=== PATIENT | female | born 1950 | race Caucasian/White ===

== ENCOUNTER 2018-08-28 10:21 | Inpatient (IN) | payer MEDICARE ==
[2018-08-28] MEDS ORDERED: MORPHINE SULFATE 10 MG/ML INJ IV ONE ×2 (10:38→14:18)
[2018-08-28] MEDS ORDERED: NORMAL SALINE 1000 ML 1,000 ML IV ONE (10:38)
--- NOTE | 2018-08-28 10:46 | ER Document Report ---
ED General - General Chief Complaint: Flank Pain Stated Complaint: RIGHT SIDE PAIN Time Seen by Provider: 08/28/18 10:28 TRAVEL OUTSIDE OF THE [place] IN LAST 30 DAYS: No - HPI Notes: Patient is a 67-year-old female that presents to the emergency department for chief complaint of right flank pain. Patient reports intermittent pain in her right flank since April 2018. She states the pain has become more frequent and sharp recently. She states pain seemed to increase after a fall that she had 1 week ago. She states she walked into a door and lost her balance falling sideways. She did hit her head but denies any loss of consciousness. She had to have a friend come help her off of the floor and has had a hard time standing since the fall. She denies any numbness but states both of her legs feel very weak and she is having a harder time getting around. She denies headache and vision changes. Patient states she does not eat much because eating makes her right flank pain worse. She denies relieving factors to her pain. She does endorse daily alcohol stating she drinks 1 beer a day. She denies ever having withdrawal symptoms but she states she is not sure because she has never stopped drinking. Patient also states that recently she has had decreased urination and dark urination Past Medical History: Alcoholism Past Surgical History: Denies Social History: Daily alcohol. denies drugs and tobacco Family History: Reviewed and noncontributory for presenting illness Allergies: Reviewed, see documented allergy list. REVIEW OF SYSTEMS: CONSTITUTIONAL : No fever No chills No diaphoresis No recent illness EENT: No vision changes No congestion No sore throat CARDIOVASCULAR: No chest pain No palpitations RESPIRATORY: No shortness of breath No cough No difficulty breathing GASTROINTESTINAL: No abdominal pain Right flank pain No nausea No vomiting No diarrhea GENITOURINARY: No dysuria No hematuria difficulty urinating MUSCULOSKELETAL: No back pain No leg pain No arm pain SKIN: No rashes No lesions LYMPHATIC: No swollen, enlarged glands. NEUROLOGICAL: No lightheadedness No headache weakness No paresthesias PSYCHIATRIC: No anxiety No depression PHYSICAL EXAMINATION: Vital signs reviewed, nursing noted reviewed. GENERAL: Cachectic, no acute distress HEAD: Atraumatic, normocephalic. EYES: Eyes appear normal, extraocular movements intact, sclera anicteric, conjunctiva are normal. ENT: nares patent, oropharynx clear without exudates. Dry mucous membranes. NECK: Normal range of motion, supple without lymphadenopathy. Nontender. LUNGS: Breath sounds clear to auscultation bilaterally and equal. No wheezes rales or rhonchi. HEART: Regular rate and rhythm without murmurs, +2/4 DP pulse left, +1/4 DP pulse right. ABDOMEN: Soft, right upper quadrant tenderness, normoactive bowel sounds. No rebound, guarding, or rigidity. No masses appreciated. EXTREMITIES: Right hip tenderness with palpation and range of motion. Pain with right hip axial loading. +2 pitting edema symmetric bilaterally. NEUROLOGICAL: Unable to lift bilateral lower extremities against gravity. +4/5 dorsiflexion plantarflexion strength symmetric bilaterally. Normal sensation. PSYCH: Normal mood, normal affect. SKIN: Warm, Dry, normal turgor, no rashes or lesions noted on exposed skin - Related Data Allergies/Adverse Reactions: Sulfa (Sulfonamide Antibiotics) Allergy (Severe, Verified 08/28/18 10:24) Past Medical History - Social History Smoking Status: Never Smoker Family History: Reviewed & Not Pertinent Pulmonary Medical History: Reports: Hx COPD Psychiatric Medical History: Reports: Hx Depression Past Surgical History: Reports: Hx Appendectomy, Hx Cholecystectomy, Hx Hysterectomy, Hx Tonsillectomy - Immunizations Hx Diphtheria, Pertussis, Tetanus Vaccination: Yes Review of Systems - Review of Systems Notes: Dictated Physical Exam - Vital signs Vitals: Temp Resp Pulse Ox 98.0 F 19 100 08/28/18 10:42 08/28/18 10:42 08/28/18 10:42 - Notes Notes: Dictated Course - Re-evaluation Re-evalutation: 08/28/18 10:52 Vitals reviewed. Nursing notes reviewed. Patient is afebrile and nontoxic. She is not having any Sirs criteria at presentation. Patient appears cachectic malnourished and dehydrated. She was given IV hydration and pain medication for symptom medic treatment in the ER. 08/28/18 12:21 Lab work shows hypokalemia at 3.5, patient was given oral potassium replacement. She also also hyponatremic. Chest x-ray is consistent with pneumonia which will be treated with Levaquin. She has no leukocytosis or Sirs and is not septic. X-ray of the hip shows no fracture. Laboratory 08/28/18 08/28/18 08/28/18 10:45 10:45 10:45 WBC 4.0 RBC 3.14 L Hgb 11.1 L Hct 31.9 L MCV 102 H MCH 35.4 H MCHC 34.9 RDW 14.4 H Plt Count 209 Seg Neutrophils % 68.0 Lymphocytes % 19.4 Monocytes % 11.7 Eosinophils % 0.5 Basophils % 0.4 Absolute Neutrophils 2.8 Absolute Lymphocytes 0.8 Absolute Monocytes 0.5 Absolute Eosinophils 0.0 Absolute Basophils 0.0 Sodium 130.1 L Potassium 3.5 L Chloride 100 Carbon Dioxide 20 L Anion Gap 10 BUN 8 Creatinine 0.37 L Est GFR ( Amer) > 60 Est GFR (Non-Af Amer) > 60 Glucose 68 L Calcium 8.7 Total Bilirubin 0.4 Direct Bilirubin 0.4 Neonat Total Bilirubin Not Reportable Neonat Direct Bilirubin Not Reportable Neonat Indirect Bili Not Reportable AST 97 H ALT 41 Alkaline Phosphatase 188 H Troponin I < 0.012 Total Protein 5.4 L Albumin 2.9 L Serum Alcohol < 10 Chest X-Ray 08/28/18 10:37 IMPRESSION: Right upper and lower lobe airspace disease and associated subpulmonic effusion consistent with pneumonia. Hip/Pelvis X-Ray 08/28/18 10:37 IMPRESSION: NO RADIOGRAPHIC EVIDENCE OF ACUTE INJURY. Head CT 08/28/18 10:38 IMPRESSION: NORMAL BRAIN CT WITHOUT CONTRAST. EVIDENCE OF ACUTE STROKE: NO. 08/28/18 14:25 Chest X-Ray 08/28/18 10:37 IMPRESSION: Right upper and lower lobe airspace disease and associated subpulmonic effusion consistent with pneumonia. Hip/Pelvis X-Ray 08/28/18 10:37 IMPRESSION: NO RADIOGRAPHIC EVIDENCE OF ACUTE INJURY. Head CT 08/28/18 10:38 IMPRESSION: NORMAL BRAIN CT WITHOUT CONTRAST. EVIDENCE OF ACUTE STROKE: NO. Abdomen/Pelvis CT 08/28/18 12:11 IMPRESSION: Large right pleural effusion Too numerous to count liver masses worrisome for metastatic lesions Patient CT abdomen shows a large amount of liver masses concerning for metastatic disease. I discussed her findings today with patient and her daughter. Patient will be admitted to the hospital for further pain management. She was given a second dose of morphine in the emergency room. She is requiring antibiotics for pneumonia and further evaluation of her pleural effusion as well as liver masses. CT was obtained after patient had voided, she has a history of neurogenic bladder, she appears to have some urinary retention. Chery catheter was placed for comfort to relieve retention. Case discussed with admitting physician Dr. Harvey who accepted admission. Patient and daughter are in agreement with the plan. She was stable at time of admission. - Vital Signs Vital signs: Temp Pulse Resp BP Pulse Ox 98.0 F 14 95/56 L 100 08/28/18 10:42 08/28/18 14:01 08/28/18 14:00 08/28/18 14:01 - Laboratory Result Diagrams: 08/28/18 10:45 08/28/18 10:45 Laboratory results interpreted by me: 08/28/18 08/28/18 08/28/18 10:45 10:45 13:28 RBC 3.14 L Hgb 11.1 L Hct 31.9 L MCV 102 H MCH 35.4 H RDW 14.4 H Sodium 130.1 L Potassium 3.5 L Carbon Dioxide 20 L Creatinine 0.37 L Glucose 68 L AST 97 H Alkaline Phosphatase 188 H Total Protein 5.4 L Albumin 2.9 L Urine Ketones 20 H Urine Blood SMALL H Ur Leukocyte Esterase SMALL H - EKG Interpretation by Me Additional EKG results interpreted by me: 08/28/18 12:12 1039: Normal sinus rhythm, rate 83, normal axis, no ectopy, nonspecific T wave abnormality diffusely Discharge - Discharge Clinical Impression: Pleural effusion, Liver masses, Urinary retention, Right flank pain Pneumonia Qualifiers: Pneumonia type: due to unspecified organism Laterality: right Lung location: lower lobe of lung Qualified Code(s): J18.1 - Lobar pneumonia, unspecified organism Failure to thrive Qualifiers: Failure to thrive age range: in adult Qualified Code(s): R62.7 - Adult failure to thrive Closed head injury Qualifiers: Encounter type: sequela Qualified Code(s): S09.90XS - Unspecified injury of head, sequela Condition: Stable Disposition: ADMITTED INPATIENT Admitting Provider: Hospitalist Unit Admitted: Telemetry Referrals: JUSTIN FORBES MD [NO LOCAL MD] - Follow up as needed
--- NOTE | 2018-08-28 11:03 | EKG REPORT ---
SEVERITY:- BORDERLINE ECG - SINUS RHYTHM BORDERLINE ST-T ABNORMALITIES, DIFFUSE LEADS : Confirmed by: Cayla Andrews 28-Aug-2018 11:03:13
[2018-08-28 11:12] LABS: ABSOLUTE LYMPHOCYTES (AUTO) 0.8 10^3/uL (0.5-4.7); ABSOLUTE MONOCYTES (AUTO) 0.5 10^3/uL (0.1-1.4); ABSOLUTE NEUT (AUTO) 2.8 10^3/uL (1.7-8.2); BASOPHILS % (AUTO) 0.4 % (0-2); EOSINOPHILS % (AUTO) 0.5 % (0-6); HEMATOCRIT 31.9 % (36.0-47.0); HEMOGLOBIN 11.1 g/dL (12.0-15.5); LYMPHOCYTES % (AUTO) 19.4 % (13-45); MEAN CORPUSCULAR HEMOGLOBIN 35.4 pg (27.0-33.4); MEAN CORPUSCULAR HGB CONC 34.9 g/dL (32.0-36.0); MEAN CORPUSCULAR VOLUME 102 fl (80-97); MONOCYTES % (AUTO) 11.7 % (3-13); PLATELET COUNT 209 10^3/uL (150-450); RED BLOOD COUNT 3.14 10^6/uL (3.72-5.28); RED CELL DISTRIBUTION WIDTH 14.4 % (11.5-14.0); TOTAL CELLS COUNTED % (AUTO) 100 %
[2018-08-28 11:29] LABS: ALANINE AMINOTRANSFERASE 41 U/L (9-52); ALBUMIN 2.9 g/dL (3.5-5.0); ALCOHOL < 10 mg/dL (NONE DETECTED); ALKALINE PHOSPHATASE 188 U/L (38-126); ANION GAP 10 (5-19); ASPARTATE AMINO TRANSFERASE 97 U/L (14-36); BILIRUBIN,DIRECT 0.4 mg/dL (0.0-0.4); BILIRUBIN,TOTAL 0.4 mg/dL (0.2-1.3); BLOOD UREA NITROGEN 8 mg/dL (7-20); CALCIUM 8.7 mg/dL (8.4-10.2); CARBON DIOXIDE 20 mmol/L (22-30); CHLORIDE 100 mmol/L (98-107); GLUCOSE 68 mg/dL (75-110); POTASSIUM 3.5 mmol/L (3.6-5.0); SODIUM 130.1 mmol/L (137-145); TOTAL PROTEIN 5.4 g/dL (6.3-8.2)
--- NOTE | 2018-08-28 11:37 | RADIOLOGY REPORT (SQ) ---
EXAM DESCRIPTION: CT HEAD WITHOUT COMPLETED DATE/TIME: 08/28/2018 11:25 am REASON FOR STUDY: trauma COMPARISON: None. TECHNIQUE: Axial images acquired through the brain without intravenous contrast. Images reviewed wi th bone, brain and subdural windows. Additional sagittal and coronal reconstructions were generated. Images stored on PACS. All CT scanners at this facility use dose modulation, iterative reconstruction, and/or weight based d osing when appropriate to reduce radiation dose to as low as reasonably achievable (ALARA). [facility]: Dose Right [facility]: CareDose [facility]: Dose Right [facility]: Teradose 4D [facility]: Biodirection RADIATION DOSE: CT Rad equipment meets quality standard of care and radiation dose reduction techniq ues were employed. CTDIvol: 53.2 mGy. DLP: 991 mGy-cm. mGy. LIMITATIONS: None. FINDINGS: VENTRICLES: Normal size and contour. CEREBRUM: No masses. No hemorrhage. No midline shift. No evidence for acute infarction. Normal gra y/white matter differentiation. No areas of low density in the white matter. CEREBELLUM: No masses. No hemorrhage. No alteration of density. No evidence for acute infarction. EXTRAAXIAL SPACES: No fluid collections. No masses. ORBITS AND GLOBE: No intra- or extraconal masses. Normal contour of globe without masses. CALVARIUM: No fracture. PARANASAL SINUSES: No fluid or mucosal thickening. SOFT TISSUES: No mass or hematoma. OTHER: No other significant finding. IMPRESSION: NORMAL BRAIN CT WITHOUT CONTRAST. EVIDENCE OF ACUTE STROKE: NO. COMMENT: Quality ID # [id number]: Final reports with documentation of one or more dose reduction techniques (e.g., Automated exposure control, adjustment of the mA and/or kV according to patient size, use of iterative reconstruction technique) TECHNICAL DOCUMENTATION: JOB ID: [id number] [employer]- All Rights Reserved Reading location - IP/workstation name: [email or web address] [facility] [employer] [email or web address]
--- NOTE | 2018-08-28 11:39 | RADIOLOGY REPORT (SQ) ---
EXAM DESCRIPTION: CHEST SINGLE VIEW COMPLETED DATE/TIME: 08/28/2018 11:28 am REASON FOR STUDY: weakness COMPARISON: 02/28/2011 EXAM PARAMETERS: NUMBER OF VIEWS: One view. TECHNIQUE: Single frontal radiographic view of the chest acquired. RADIATION DOSE: NA LIMITATIONS: None. FINDINGS: LUNGS AND PLEURA: COPD. Airspace disease in the right upper lobe. Blunting of the right costophrenic angle. Left lung is clear. MEDIASTINUM AND HILAR STRUCTURES: No masses. Contour normal. HEART AND VASCULAR STRUCTURES: Heart normal in size. Normal vasculature. BONES: No acute findings. HARDWARE: None in the chest. OTHER: No other significant finding. IMPRESSION: Right upper and lower lobe airspace disease and associated subpulmonic effusion consiste nt with pneumonia. TECHNICAL DOCUMENTATION: JOB ID: [id number] [employer]- All Rights Reserved Reading location - IP/workstation name: [email or web address]
--- NOTE | 2018-08-28 11:42 | RADIOLOGY REPORT (SQ) ---
EXAM DESCRIPTION: HIP RIGHT AP/LATERAL COMPLETED DATE/TIME: 08/28/2018 11:28 am REASON FOR STUDY: hip pain COMPARISON: None. NUMBER OF VIEWS: Two views. TECHNIQUE: AP pelvis and additional frog-leg view of the right hip. LIMITATIONS: None. FINDINGS: Moderate osteoarthritic changes in both hips. No evidence of acute fracture or dislocatio n. IMPRESSION: NO RADIOGRAPHIC EVIDENCE OF ACUTE INJURY. TECHNICAL DOCUMENTATION: JOB ID: [id number] [employer]- All Rights Reserved Reading location - IP/workstation name: [email or web address]
[2018-08-28] MEDS ORDERED: POTASSIUM CHLORIDE 20 MEQ/15 ML UDCUP PO ONE (12:20)
[2018-08-28] MEDS ORDERED: LEVOFLOXACIN 750 MG/D5W RTU 750 MG/150 ML RTUPB IV SCH (13:00)
--- NOTE | 2018-08-28 14:00 | RADIOLOGY REPORT (SQ) ---
EXAM DESCRIPTION: CT ABD/PELVIS WITH IV ONLY COMPLETED DATE/TIME: 08/28/2018 1:45 pm REASON FOR STUDY: right abdominal pain COMPARISON: CT angio chest 02/28/2011 TECHNIQUE: CT scan of the abdomen and pelvis performed using helical scanning technique with dynamic intravenous contrast injection. No oral contrast. Images reviewed with lung, soft tissue, and bone windows. Reconstructed coronal and sagittal MPR images reviewed. Delayed images for evaluation of the urinary system also acquired. All images stored on PACS. All CT scanners at this facility use dose modulation, iterative reconstruction, and/or weight based d osing when appropriate to reduce radiation dose to as low as reasonably achievable (ALARA). [facility]: Dose Right [facility]: CareDose [facility]: Dose Right [facility]: Teradose 4D [facility]: ZeusControls CONTRAST TYPE AND DOSE: contrast/concentration: Isovue 350.00 mg/ml; Total Contrast Delivered: 44.0 ml; Total Saline Delivered: 51.0 ml RENAL FUNCTION: Creatinine 0.4 RADIATION DOSE: CT Rad equipment meets quality standard of care and radiation dose reduction techniq ues were employed. CTDIvol: 4.8 - 4.9 mGy. DLP: 510 mGy-cm.. LIMITATIONS: None. FINDINGS: LOWER CHEST: Large right pleural effusion LIVER: Too numerous to count liver masses worrisome for metastatic disease, the largest is 3 cm in si ze left lobe liver SPLEEN: Normal size. No focal lesions. PANCREAS: No masses. No significant calcifications. No adjacent inflammation or peripancreatic fluid collections. Pancreatic duct not dilated. GALLBLADDER: Surgically absent ADRENAL GLANDS: No significant masses or asymmetry. RIGHT KIDNEY AND URETER: No solid masses. No significant calcifications. No hydronephrosis or hyd roureter. LEFT KIDNEY AND URETER: No solid masses. No significant calcifications. No hydronephrosis or hydr oureter. AORTA AND VESSELS: No abdominal aortic aneurysm. Heavy atherosclerotic calcification at the origins of the celiac artery, SMA, left renal artery, and bilateral proximal common iliac arteries RETROPERITONEUM: No retroperitoneal adenopathy, hemorrhage or masses. BOWEL AND PERITONEAL CAVITY: No masses or inflammatory changes. No free fluid or peritoneal masses. APPENDIX: Not identified PELVIS: Small amount of free pelvic cul-de-sac fluid. Bladder unremarkable. Uterus and ovaries not identified. ABDOMINAL WALL: No masses. No hernias. BONES: No acute fracture. No gross lytic or blastic lesions. Old avulsion with bony overgrowth, rig ht anterior superior iliac spine OTHER: No other significant finding. IMPRESSION: Large right pleural effusion Too numerous to count liver masses worrisome for metastatic lesions TECHNICAL DOCUMENTATION: JOB ID: [id number] Quality ID # [id number]: Final reports with documentation of one or more dose reduction techniques (e.g., Au tomated exposure control, adjustment of the mA and/or kV according to patient size, use of iterative reconstruction technique) 2010 [employer]- All Rights Reserved Reading location - IP/workstation name: [email or web address]
[2018-08-28 14:08] LABS: APPEARANCE,URINE SLIGHTLY-CLOUDY; BILIRUBIN,URINE NEGATIVE (NEGATIVE); COLOR,URINE YELLOW; GLUCOSE, URINE NEGATIVE (NEGATIVE); KETONES,URINE 20 mg/dL (NEGATIVE); LEUKOCYTE ESTERASE,URINE SMALL (NEGATIVE); NITRITE,URINE NEGATIVE (NEGATIVE); PROTEIN,URINE NEGATIVE (NEGATIVE); URINE SPECIFIC GRAVITY 1.006; UROBILINOGEN,URINE NEGATIVE mg/dL (<2.0)
[2018-08-28 14:37] LABS: INTERNATIONAL RATION (INR) 1.06; PROTHROMBIN TIME 14.3 SEC (11.4-15.4)
[2018-08-28] MEDS ORDERED: IPRATROPIUM/ALBUTEROL 0.5-2.5 MG/3 ML AMPUL NEB PRN (15:33)
[2018-08-28] MEDS ORDERED: ONDANSETRON HCL INJ/PF 4 MG/2 ML SDV IV PRN (15:33)
[2018-08-28] MEDS ORDERED: MAG HYDROX/AL HYDROX/SIMETH SUSP 30 ML UDCUP PO PRN (15:33)
[2018-08-28] MEDS ORDERED: IBUPROFEN 400 MG TABLET PO PRN (15:46)
--- NOTE | 2018-08-28 16:06 | PDOC H&P ---
History of Present Illness Admission Date/PCP: 08/28/18 14:41 Patient complains of: Right-sided abdominal pain and right chest pain History of Present Illness: DOMINICK KABA is a 67 year old female sent to the hospital via ambulance after the daughter called EMS. Patient tried to ambulate to the bathroom and walked into the door. Daughter states her mother is an alcoholic has been in the house for 5 years she has never gone out of the house she does not see doctors. She has had gradual weight loss over the past year. She is having increasing complaint of pain in the right side of her abdomen which is why the daughter called EMS. Upon arrival to the ER patient is a cachectic appearing white female CT of the head showed no acute pathology a CT of the abdomen was done due to the abdominal pain which showed numerous lesions in the liver. Patient had no fever normal white count her sodium was low at 130 likely due to her alcoholism there was a large right pleural effusion on CT as well. Patient has no knowledge of underlying cancer as she has never sought any medical care. Her last healthcare encounter was cholecystectomy in 2012. She denies hematochezia melena she does use BC powder daily. She smokes up to 2 packs a day. Her coagulation studies were surprisingly normal and she has a history of urinary retention with overflow incontinence. Past Medical History Cardiac Medical History: Reports: None Pulmonary Medical History: Reports: Chronic Obstructive Pulmonary Disease (COPD) EENT Medical History: Reports: None Neurological Medical History: Reports: None Endocrine Medical History: Reports: None Renal/ Medical History: Reports: None Malignancy Medical History: Reports: None GI Medical History: Reports: None Musculoskeltal Medical History: Reports: None, Arthritis Skin Medical History: Reports: None Psychiatric Medical History: Reports: Depression, Substance Abuse, Tobacco Dependency Hematology: Reports: None Infectious Medical History: Reports: None Past Surgical History Past Surgical History: Reports: Appendectomy, Cholecystectomy, Hysterectomy, Orthopedic Surgery - neck, Tonsillectomy Social History Information Source: Patient Smoking Status: Never Smoker Cigarettes Packs Per Day: 2 Number of Years Smokin Frequency of Alcohol Use: Heavy Drugs: None - Advance Directive Resuscitation Status: Full Code Family History Family History: Malignancy - Daughter breast cancer, mother lung cancer Parental Family History Reviewed: Yes Children Family History Reviewed: Yes Sibling(s) Family History Reviewed.: Yes Medication/Allergy Home Medications: No Home Medications 08/28/18 Allergies/Adverse Reactions: Sulfa (Sulfonamide Antibiotics) Allergy (Severe, Verified 08/28/18 10:24) Review of Systems Constitutional: PRESENT: weight loss. ABSENT: chills, fever(s), headache(s), weight gain Eyes: ABSENT: visual disturbances Ears: ABSENT: hearing changes Cardiovascular: PRESENT: edema - Bilateral. ABSENT: chest pain, dyspnea on exertion, orthropnea, palpitations Respiratory: PRESENT: dyspnea. ABSENT: cough, hemoptysis Gastrointestinal: PRESENT: abdominal pain - Right upper quadrant. ABSENT: coffee ground emesis, constipation, diarrhea, hematemesis, hematochezia, melena , nausea, vomiting Genitourinary: PRESENT: other - Urinary retention. ABSENT: dysuria, hematuria Neurological: ABSENT: abnormal gait, abnormal speech, confusion, dizziness, focal weakness, syncope Psychiatric: ABSENT: anxiety, depression, homidical ideation, suicidal ideation Endocrine: ABSENT: cold intolerance, heat intolerance, polydipsia, polyuria Hematologic/Lymphatic: ABSENT: easy bleeding, easy bruising Physical Exam Vital Signs: Temp Pulse Resp BP Pulse Ox 98.0 F 14 95/56 L 100 08/28/18 10:42 08/28/18 14:01 08/28/18 14:00 08/28/18 14:01 General appearance: PRESENT: no acute distress, well-developed, well-nourished Eye exam: PRESENT: conjunctiva pink, EOMI, PERRLA. ABSENT: scleral icterus Ear exam: PRESENT: normal external ear exam Mouth exam: PRESENT: moist, tongue midline Neck exam: ABSENT: carotid bruit, JVD, lymphadenopathy, thyromegaly Respiratory exam: PRESENT: clear to auscultation zeke, decreased breath sounds - Right base. ABSENT: rales, rhonchi, wheezes Cardiovascular exam: PRESENT: RRR. ABSENT: diastolic murmur, rubs, systolic murmur Pulses: PRESENT: normal dorsalis pedis pul, +2 pedal pulses bilateral GI/Abdominal exam: PRESENT: normal bowel sounds, organolmegaly - Large liver tender, soft, tenderness. ABSENT: distended, guarding, mass, rebound Extremities exam: PRESENT: full ROM. ABSENT: calf tenderness, clubbing, pedal edema Neurological exam: PRESENT: alert, awake, oriented to person, oriented to place , oriented to time, oriented to situation, CN II-XII grossly intact. ABSENT: motor sensory deficit Psychiatric exam: PRESENT: anxious, depressed Skin exam: PRESENT: dry, intact, warm. ABSENT: cyanosis, rash Results Impressions: Chest X-Ray 08/28/18 10:37 IMPRESSION: Right upper and lower lobe airspace disease and associated subpulmonic effusion consistent with pneumonia. Hip/Pelvis X-Ray 08/28/18 10:37 IMPRESSION: NO RADIOGRAPHIC EVIDENCE OF ACUTE INJURY. Head CT 08/28/18 10:38 IMPRESSION: NORMAL BRAIN CT WITHOUT CONTRAST. EVIDENCE OF ACUTE STROKE: NO. Abdomen/Pelvis CT 08/28/18 12:11 IMPRESSION: Large right pleural effusion Too numerous to count liver masses worrisome for metastatic lesions Assessment & Plan - Diagnosis (1) Right flank pain Is this a current diagnosis for this admission?: Yes Plan: Due to numerous metastatic lesions in the liver (2) Liver masses Is this a current diagnosis for this admission?: Yes Plan: Unknown primary if pleural effusion fails to yield diagnostic cytology will obtain liver biopsy. (3) Pleural effusion Is this a current diagnosis for this admission?: Yes Plan: Discussed case with Dr. Catalan of surgery was recommended interventional radiology. Discussed with Dr. Solis of radiology will perform thoracentesis in the morning will check for cytology culture cell count LDH protein glucose cholesterol (4) Severe protein-calorie malnutrition Plan: Place patient on regular diet consult dietary for nutritional needs. (5) Hyponatremia Is this a current diagnosis for this admission?: Yes Plan: Sodium 130 likely due to her chronic alcoholism normal saline infusion repeat BMP in a.m. 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 Is this a current diagnosis for this admission?: Yes - Time Time Spent: 50 to 70 Minutes - Inpatient Certification Based on my medical assessment, after consideration of the patient's comorbidities, presenting symptoms, or acuity I expect that the services needed warrant INPATIENT care.: Yes I certify that my determination is in accordance with my understanding of Medicare's requirements for reasonable and necessary INPATIENT services [42 CFR 412.3e].: Yes Medical Necessity: Significant Comorbidiites Make Outpatient Treatment Too Risky , Need Close Monitoring Due to Risk of Patient Decompensation, Risk of Diagnosis Which Will Require Inpatient Eval/Care/Monitoring - Thoracentesis and possible liver biopsy
[2018-08-28 16:35] LABS: PHOSPHORUS 3.3 mg/dL (2.5-4.5)
[2018-08-28] MEDS: NICOTINE 21 MG/24 HR PATCH.TD24 TD SCH (17:03)
--- NOTE | 2018-08-28 19:12 | PDOC CONSULTATION ---
Consultation Consult Date: 08/28/18 Consult reason:: right pleural effusion and metastatic lesions to the liver History of Present Illness Admission Date/PCP: 08/28/18 14:41 Patient complains of: RUQ pains History of Present Illness: DOMINICK KABA is a 67 year old female who is known alcoholic has lost a lot of weight and c/o right sided abdominal pains. On CT scan today showed right plueral effusion and metastatic liver disease. Past Medical History Cardiac Medical History: Reports: None Pulmonary Medical History: Reports: Chronic Obstructive Pulmonary Disease (COPD) EENT Medical History: Reports: None Neurological Medical History: Reports: None Endocrine Medical History: Reports: None Renal/ Medical History: Reports: None Malignancy Medical History: Reports: None GI Medical History: Reports: None Musculoskeltal Medical History: Reports: None, Arthritis Skin Medical History: Reports: None Psychiatric Medical History: Reports: Depression, Substance Abuse, Tobacco Dependency Hematology: Reports: None Infectious Medical History: Reports: None Past Surgical History Past Surgical History: Reports: Appendectomy, Cholecystectomy, Hysterectomy, Orthopedic Surgery - neck, Tonsillectomy Social History Smoking Status: Current Every Day Smoker Cigarettes Packs Per Day: 2 Number of Years Smokin Last Time Smoked: 08/28/2018 Frequency of Alcohol Use: Occasional Hx Recreational Drug Use: No Drugs: None Hx Prescription Drug Abuse: No - Advance Directive Resuscitation Status: Full Code Family History Family History: Malignancy - Daughter breast cancer, mother lung cancer Parental Family History Reviewed: Yes Children Family History Reviewed: No Sibling(s) Family History Reviewed.: No Medication/Allergy Home Medications: No Home Medications 08/28/18 Allergies/Adverse Reactions: Sulfa (Sulfonamide Antibiotics) Allergy (Severe, Verified 08/28/18 10:24) Review of Systems Constitutional: PRESENT: other - no fever/chills Eyes: PRESENT: other - no visual/hearing changes Cardiovascular: PRESENT: other - no chest pains/cough Gastrointestinal: PRESENT: abdominal pain Genitourinary: PRESENT: other - no dysuria Integumentary: PRESENT: other - no pruritus Neurological: PRESENT: weakness Physical Exam Vital Signs: Temp Pulse Resp BP Pulse Ox 98.1 F 90 14 84/50 L 92 08/28/18 17:45 08/28/18 17:45 08/28/18 17:45 08/28/18 17:45 08/28/18 17:45 Intake & Output 08/27/18 08/28/18 08/29/18 06:59 06:59 06:59 Intake Total 150 Balance 150 General appearance: PRESENT: mild distress Head exam: PRESENT: atraumatic Eye exam: PRESENT: conjunctiva pink Mouth exam: PRESENT: moist Neck exam: PRESENT: full ROM Respiratory exam: PRESENT: decreased breath sounds - right side Cardiovascular exam: PRESENT: RRR Pulses: PRESENT: normal radial pulses Vascular exam: PRESENT: normal capillary refill GI/Abdominal exam: PRESENT: soft - palpable firm liver edge Rectal exam: PRESENT: deferred Extremities exam: PRESENT: full ROM Musculoskeletal exam: PRESENT: ambulatory Psychiatric exam: PRESENT: appropriate affect Skin exam: PRESENT: normal color, warm Results Impressions: Chest X-Ray 08/28/18 10:37 IMPRESSION: Right upper and lower lobe airspace disease and associated subpulmonic effusion consistent with pneumonia. Hip/Pelvis X-Ray 08/28/18 10:37 IMPRESSION: NO RADIOGRAPHIC EVIDENCE OF ACUTE INJURY. Head CT 08/28/18 10:38 IMPRESSION: NORMAL BRAIN CT WITHOUT CONTRAST. EVIDENCE OF ACUTE STROKE: NO. Abdomen/Pelvis CT 08/28/18 12:11 IMPRESSION: Large right pleural effusion Too numerous to count liver masses worrisome for metastatic lesions Assessment & Plan - Time Time Spent: 30 to 50 Minutes - Inpatient Certification Medical Necessity: Need Close Monitoring Due to Risk of Patient Decompensation, Need For IV Fluids, Need for Pain Control, Risk of Complication if Not Cared For in Hospital - Plan Summary Plan Summary: Will need thoracentesis right side for both diagnostic/therapeutic Have talked to Dr Solis in XRAY . They can do the thoracentesis in XRAY dept tomorrow am.
[2018-08-28] MEDS: FAMOTIDINE 20 MG TABLET PO SCH (21:56)
[2018-08-28] MEDS ORDERED: FAMOTIDINE 20 MG TABLET PO SCH (22:00)
[2018-08-29 05:05] LABS: ABSOLUTE LYMPHOCYTES (AUTO) 0.7 10^3/uL (0.5-4.7); ABSOLUTE MONOCYTES (AUTO) 0.6 10^3/uL (0.1-1.4); ABSOLUTE NEUT (AUTO) 3.4 10^3/uL (1.7-8.2); BASOPHILS % (AUTO) 0.4 % (0-2); EOSINOPHILS % (AUTO) 0.2 % (0-6); HEMATOCRIT 29.4 % (36.0-47.0); HEMOGLOBIN 10.4 g/dL (12.0-15.5); MEAN CORPUSCULAR HEMOGLOBIN 35.8 pg (27.0-33.4); MEAN CORPUSCULAR HGB CONC 35.4 g/dL (32.0-36.0); MEAN CORPUSCULAR VOLUME 101 fl (80-97); MONOCYTES % (AUTO) 12.2 % (3-13); PLATELET COUNT 157 10^3/uL (150-450); RED CELL DISTRIBUTION WIDTH 14.5 % (11.5-14.0); SEGMENTED NEUTROPHILS % (AUTO) 72.2 % (42-78); TOTAL CELLS COUNTED % (AUTO) 100 %; WHITE BLOOD COUNT 4.7 10^3/uL (4.0-10.5)
[2018-08-29 05:24] LABS: ANION GAP 7 (5-19); BLOOD UREA NITROGEN 6 mg/dL (7-20); CALCIUM 8.7 mg/dL (8.4-10.2); CARBON DIOXIDE 20 mmol/L (22-30); CHLORIDE 104 mmol/L (98-107); GLUCOSE 88 mg/dL (75-110); POTASSIUM 3.7 mmol/L (3.6-5.0); SODIUM 131.2 mmol/L (137-145); TRIGLYCERIDES 115 mg/dL (<150)
[2018-08-29 05:35] LABS: DIRECT LDL 108 mg/dL (<100)
[2018-08-29] MEDS: OXYCODONE HCL IR 5 MG TABLET PO PRN ×3 (08:17→17:46)
[2018-08-29] MEDS: ENOXAPARIN SODIUM INJ 30 MG/0.3 ML DISP.SYRIN SUBCUT SCH (09:46)
[2018-08-29] MEDS: DOCUSATE SODIUM 100 MG CAPSULE PO SCH (09:52)
[2018-08-29] MEDS: NICOTINE 21 MG/24 HR PATCH.TD24 TD SCH (09:52)
[2018-08-29] MEDS ORDERED: DOCUSATE SODIUM 100 MG/10 ML UDC PO SCH (10:00)
[2018-08-29] MEDS: NORMAL SALINE 1000 ML 1,000 ML IV PRN (10:09)
--- NOTE | 2018-08-29 14:16 | PDOC PROGRESS REPORT ---
Subjective Progress Note for:: 08/29/18 Subjective:: No adverse events overnight. No new complaints. Vital signs been stable. She says her breathing is felt to comfortable. She says her appetite is very good. She had not had thoracentesis yet by the time I saw her this morning. Reason For Visit: RIGHT UPPER QUADRANT ABDOMINAL PAIN LARGE RIGHT Physical Exam Vital Signs: Temp Pulse Resp BP Pulse Ox 98.0 F 93 16 99/84 L 94 08/29/18 11:26 08/29/18 13:42 08/29/18 13:42 08/29/18 11:26 08/29/18 13:42 Intake & Output 08/28/18 08/29/18 08/30/18 06:59 06:59 06:59 Intake Total 772 Output Total 1550 Balance -778 Weight 38.2 kg General appearance: PRESENT: no acute distress, cooperative, disheveled, thin Head exam: PRESENT: atraumatic, normocephalic Respiratory exam: PRESENT: clear to auscultation zeke, decreased breath sounds - Right base posteriorly, unlabored. ABSENT: accessory muscle use, crackles, rhonchi, tachypnea, wheezes Cardiovascular exam: PRESENT: RRR, +S1, +S2 Vascular exam: PRESENT: normal capillary refill GI/Abdominal exam: PRESENT: normal bowel sounds, soft. ABSENT: distended, guarding, rebound, tenderness Extremities exam: ABSENT: clubbing, joint swelling, pedal edema Musculoskeletal exam: PRESENT: normal inspection. ABSENT: deformity Neurological exam: PRESENT: alert, awake, oriented to person, oriented to place , oriented to time Skin exam: PRESENT: dry, warm, other - Generally grayish discoloration Results Laboratory Results: 08/29/18 04:45 08/29/18 04:45 08/29/18 08/29/18 04:45 04:45 WBC 4.7 RBC 2.90 L Hgb 10.4 L Hct 29.4 L MCV 101 H MCH 35.8 H MCHC 35.4 RDW 14.5 H Plt Count 157 Seg Neutrophils % 72.2 Lymphocytes % 15.0 Monocytes % 12.2 Eosinophils % 0.2 Basophils % 0.4 Absolute Neutrophils 3.4 Absolute Lymphocytes 0.7 Absolute Monocytes 0.6 Absolute Eosinophils 0.0 Absolute Basophils 0.0 Sodium 131.2 L Potassium 3.7 Chloride 104 Carbon Dioxide 20 L Anion Gap 7 BUN 6 L Creatinine 0.38 L Est GFR ( Amer) > 60 Est GFR (Non-Af Amer) > 60 Glucose 88 Calcium 8.7 Triglycerides 115 Cholesterol 187.20 LDL Cholesterol Direct 108 H VLDL Cholesterol 23.0 HDL Cholesterol 48 Impressions: Chest X-Ray 08/28/18 10:37 IMPRESSION: Right upper and lower lobe airspace disease and associated subpulmonic effusion consistent with pneumonia. Hip/Pelvis X-Ray 08/28/18 10:37 IMPRESSION: NO RADIOGRAPHIC EVIDENCE OF ACUTE INJURY. Head CT 08/28/18 10:38 IMPRESSION: NORMAL BRAIN CT WITHOUT CONTRAST. EVIDENCE OF ACUTE STROKE: NO. Abdomen/Pelvis CT 08/28/18 12:11 IMPRESSION: Large right pleural effusion Too numerous to count liver masses worrisome for metastatic lesions Assessment & Plan - Diagnosis (1) Pleural effusion Is this a current diagnosis for this admission?: Yes Plan: Likely malignant, thoracentesis with cytology and fluid studies pending. (2) Liver masses Is this a current diagnosis for this admission?: Yes Plan: If her fluid cytology shows a liver primary, we probably will need to do a biopsy. However, if the fluid cytology shows something other than liver, will probably need to get a liver biopsy. Once we have some more information to work with, she will need an oncology consultation. (3) Hyponatremia Is this a current diagnosis for this admission?: Yes Plan: Improving with some IV fluids. 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 (5) Severe protein-calorie malnutrition Is this a current diagnosis for this admission?: Yes Plan: She is on a regular diet and according to her she is eating everything is being brought to her. - Time Time Spent with patient: 25-34 minutes
[2018-08-29] MEDS ORDERED: ONDANSETRON HCL INJ/PF 4 MG/2 ML SDV IV PRN (15:30)
--- NOTE | 2018-08-29 15:32 | RADIOLOGY REPORT (SQ) ---
EXAM DESCRIPTION: U/S THORACENTESIS WITH IMAGING COMPLETED DATE/TIME: 08/29/2018 3:16 pm REASON FOR STUDY: for r lung COMPARISON: CT abdomen pelvis 08/28/2018 LIMITATIONS: None. PROCEDURE: Procedure, risks, benefit, and alternative explained to patient who then gave written con sent. The posterior right chest wall was marked using ultrasound guidance. A time-out was called fo r correct marking verification. Chest prepped and draped using sterile technique. Local anesthesia a chieved using 4 ml of 1% lidocaine injection. A 6fr Safe-T- Centesis set was introduced into the pos terior right pleural space. Fluid was aspirated. The catheter was removed and the entry site was co radha with sterile bandage. No immediate complications noted. Fluid was sent for testing, including cytology. Images acquired during the procedure were stored on PACS. FINDINGS: ENTRY SITE: posterior right chest. FLUID VOLUME: 900 mL clear yellow fluid FLUID ANALYSIS: Yes, sent for testing including cytology OTHER: Fluid analysis is pending IMPRESSION: SUCCESSFUL RIGHT THORACENTESIS USING ULTRASOUND GUIDANCE. COMMENT: Patient medication list reviewed: Yes- Quality ID# [id number]:Eligible professional attests to doc umenting in the medical record they obtained, updated, or reviewed the patient's current medications. TECHNICAL DOCUMENTATION: JOB ID: [id number] [employer]- All Rights Reserved Reading location - IP/workstation name: [email or web address]
--- NOTE | 2018-08-29 15:43 | RADIOLOGY REPORT (SQ) ---
EXAM DESCRIPTION: CHEST SINGLE VIEW COMPLETED DATE/TIME: 08/29/2018 3:28 pm REASON FOR STUDY: S/P RT THORACENTESIS COMPARISON: AP chest 08/28/2018 EXAM PARAMETERS: NUMBER OF VIEWS: One view. TECHNIQUE: Single frontal radiographic view of the chest acquired. RADIATION DOSE: NA LIMITATIONS: None. FINDINGS: LUNGS AND PLEURA: Post right thoracentesis with removal of 900 mL of fluid from the right chest. No pneumothorax. There is mild volume loss in the right upper lobe and fullness along the upper right hilum. A right upper lobe mass may be present. Consider CT chest for followup. Left lung hyperinflated but clear. No left pleural effusion. No left pneumothorax. MEDIASTINUM AND HILAR STRUCTURES: Right upper hilar mass HEART AND VASCULAR STRUCTURES: Heart normal in size. Normal vasculature. BONES: No acute findings. HARDWARE: None in the chest. OTHER: No other significant finding. IMPRESSION: No pneumothorax post right thoracentesis Volume loss right upper lobe with right upper hilar mass. Findings are worrisome for malignancy. Co nsider CT chest for followup TECHNICAL DOCUMENTATION: JOB ID: [id number] [employer]- All Rights Reserved Reading location - IP/workstation name: [email or web address]
[2018-08-29 16:31] LABS: FLUID APPEARANCE SLIGHTLY HAZY; FLUID COLOR YELLOW; FLUID SOURCE LUNG; FLUID TYPE PLEURAL; FLUID VISCOSITY SLIGHTLY VISCOUS
[2018-08-29] MEDS: BISACODYL 5 MG TABEC PO SCH (17:37)
--- NOTE | 2018-08-29 17:44 | RADIOLOGY REPORT (SQ) ---
EXAM DESCRIPTION: CHEST SINGLE VIEW COMPLETED DATE/TIME: 08/29/2018 5:34 pm REASON FOR STUDY: 2 HOURS S/P RT THORACENTESIS COMPARISON: 08/29/2018 EXAM PARAMETERS: NUMBER OF VIEWS: One view. TECHNIQUE: Single frontal radiographic view of the chest acquired. RADIATION DOSE: NA LIMITATIONS: None. FINDINGS: LUNGS AND PLEURA: Hyperexpansion of the lungs. No pneumothorax after thoracentesis. Ther e appears to be a suprahilar mass on the right. Ill-defined infiltrate is suggested in the right bas e. MEDIASTINUM AND HILAR STRUCTURES: No masses. Contour normal. HEART AND VASCULAR STRUCTURES: Heart normal in size. Normal vasculature. BONES: No acute findings. HARDWARE: None in the chest. OTHER: No other significant finding. IMPRESSION: No pneumothorax after thoracentesis. Chronic lung changes. Suprahilar mass on the righ t. Question right lower lobe pneumonia. TECHNICAL DOCUMENTATION: JOB ID: [id number] [employer]- All Rights Reserved Reading location - IP/workstation name: [email or web address]
[2018-08-29 19:28] LABS: TOTAL PROTEIN 4.6 g/dL (6.3-8.2)
[2018-08-29] MEDS: FAMOTIDINE 20 MG TABLET PO SCH (21:25)
[2018-08-30] MEDS: NORMAL SALINE 1000 ML 1,000 ML IV PRN ×2 (02:38→21:10)
--- NOTE | 2018-08-30 03:51 | RADIOLOGY REPORT (SQ) ---
CLINICAL DATA: 67-year-old female with right suprahilar mass seen on x-ray TECHNICAL DATA: Axial CT imaging of the chest was performed following the administration of intravenous contrast. Sagittal and coronal reconstructed images were then performed. The CT study is performed according to ALARA (as low as reasonably achievable) or ALARA/IMAGE GENTLY, with automatic adjustment of mA and/or kV according to patient size. Comparison: Prior chest x-ray performed on 08/29/2018.. FINDINGS: CT CHEST: Lungs: The lungs are well expanded. There are small bilateral pleural effusions. There is interstitial thickening and alveolar airspace disease in the posterior right lower lobe and there is diffuse interstitial thickening within the lingula and posterior aspect of the left upper lobe and posterior right upper lobe. There is no evidence of a pneumothorax. There are centrilobular emphysematous changes particularly involving the upper lobes. Heart: The heart is normal in size. There is no pericardial effusion. Mediastinum: There are atherosclerotic calcifications along the thoracic aorta and coronary arteries. There is a heterogeneously enhancing soft tissue mass posterior to the anatoliy within the posterior mediastinum measuring approximately 3.0 x 2.1 x 3.5 cm concerning for a neoplasm. There is narrowing of the right upper lobe bronchus and there is right hilar lymphadenopathy. The mediastinal vessels are normal in caliber and contour. Bones:No acute osseous abnormalities are identified. Soft tissues:No focal soft tissue abnormalities are identified. Lymphadenopathy: There is anterior mediastinal lymphadenopathy posterior to the sternum as well as right hilar and middle mediastinal lymphadenopathy. Upper abdomen: There are numerous low density mass lesions within the liver most consistent with metastatic disease. The left adrenal gland is grossly unremarkable. The right adrenal gland is incompletely visualized. IMPRESSION: 1. Heterogeneously enhancing soft tissue mass in the posterior mediastinum posterior to the anatoliy measuring approximately 3.0 x 2.1 x 3.5 cm concerning for neoplasm. 2. Narrowing of the right upper lobe bronchus with associated right hilar and mediastinal lymphadenopathy and probable postobstructive pneumonia or atelectasis in the right upper lobe. 3. Centrilobular emphysematous changes. 4. Small bilateral pleural effusions with interstitial thickening and alveolar airspace disease in the posterior right lower lobe which may be due to pneumonia or possibly aspiration. There are additional scattered areas of interstitial thickening in the right and left upper lobes. 5. Too numerous to count low density mass lesions within the liver most consistent with metastatic disease. These findings were discussed with the patient's nurse Sandra on 08/30/2018 at 2:48 AM central time.
[2018-08-30 06:54] LABS: ABSOLUTE LYMPHOCYTES (AUTO) 0.7 10^3/uL (0.5-4.7); ABSOLUTE MONOCYTES (AUTO) 0.4 10^3/uL (0.1-1.4); ABSOLUTE NEUT (AUTO) 3.3 10^3/uL (1.7-8.2); BASOPHILS % (AUTO) 0.4 % (0-2); EOSINOPHILS % (AUTO) 0.4 % (0-6); HEMATOCRIT 29.5 % (36.0-47.0); HEMOGLOBIN 10.3 g/dL (12.0-15.5); LYMPHOCYTES % (AUTO) 15.4 % (13-45); MEAN CORPUSCULAR HEMOGLOBIN 35.5 pg (27.0-33.4); MEAN CORPUSCULAR VOLUME 101 fl (80-97); MONOCYTES % (AUTO) 9.2 % (3-13); PLATELET COUNT 159 10^3/uL (150-450); RED BLOOD COUNT 2.91 10^6/uL (3.72-5.28); RED CELL DISTRIBUTION WIDTH 14.4 % (11.5-14.0); SEGMENTED NEUTROPHILS % (AUTO) 74.6 % (42-78); TOTAL CELLS COUNTED % (AUTO) 100 %; WHITE BLOOD COUNT 4.4 10^3/uL (4.0-10.5)
[2018-08-30 07:06] LABS: ANION GAP 6 (5-19); BLOOD UREA NITROGEN 5 mg/dL (7-20); CALCIUM 8.1 mg/dL (8.4-10.2); CARBON DIOXIDE 21 mmol/L (22-30); CHLORIDE 108 mmol/L (98-107); GLUCOSE 85 mg/dL (75-110); POTASSIUM 3.6 mmol/L (3.6-5.0); SODIUM 134.7 mmol/L (137-145)
[2018-08-30] MEDS: NICOTINE 21 MG/24 HR PATCH.TD24 TD SCH (09:49)
[2018-08-30] MEDS: ENOXAPARIN SODIUM INJ 30 MG/0.3 ML DISP.SYRIN SUBCUT SCH (09:50)
[2018-08-30] MEDS: BISACODYL 5 MG TABEC PO SCH ×2 (09:53→18:36)
[2018-08-30] MEDS: DOCUSATE SODIUM 100 MG CAPSULE PO SCH (09:54)
[2018-08-30] MEDS: LEVOFLOXACIN 750 MG TABLET PO SCH (09:56)
--- NOTE | 2018-08-30 14:58 | PDOC PROGRESS REPORT ---
Subjective Progress Note for:: 08/30/18 Subjective:: No adverse events overnight. No new complaints. She said her daughter had already told her about the mass in her chest. She wants me to talk to her daughter and to "tell her to calm down." Reason For Visit: RIGHT UPPER QUADRANT ABDOMINAL PAIN LARGE RIGHT Physical Exam Vital Signs: Temp Pulse Resp BP Pulse Ox 98.3 F 97 18 107/55 L 97 08/30/18 11:18 08/30/18 11:18 08/30/18 11:18 08/30/18 11:18 08/30/18 11:18 Intake & Output 08/29/18 08/30/18 08/31/18 06:59 06:59 06:59 Intake Total 772 2011 Output Total 1550 1900 Balance -778 112 Weight 38.2 kg 40.1 kg General appearance: PRESENT: no acute distress, cooperative, disheveled, thin Head exam: PRESENT: atraumatic, normocephalic Respiratory exam: PRESENT: clear to auscultation zeke, improved aeration right base, unlabored. ABSENT: accessory muscle use, crackles, rhonchi, tachypnea, wheezes Cardiovascular exam: PRESENT: RRR, +S1, +S2 Vascular exam: PRESENT: normal capillary refill GI/Abdominal exam: PRESENT: normal bowel sounds, soft. ABSENT: distended, guarding, rebound, tenderness Extremities exam: ABSENT: clubbing, joint swelling, pedal edema Musculoskeletal exam: PRESENT: normal inspection. ABSENT: deformity Neurological exam: PRESENT: alert, awake, oriented to person, oriented to place , oriented to time Skin exam: PRESENT: dry, warm, other - Generally grayish discoloration Results Laboratory Results: 08/30/18 05:51 08/30/18 05:51 08/29/18 08/29/18 08/30/18 16:00 18:13 05:51 WBC 4.4 RBC 2.91 L Hgb 10.3 L Hct 29.5 L MCV 101 H MCH 35.5 H MCHC 35.0 RDW 14.4 H Plt Count 159 Seg Neutrophils % 74.6 Lymphocytes % 15.4 Monocytes % 9.2 Eosinophils % 0.4 Basophils % 0.4 Absolute Neutrophils 3.3 Absolute Lymphocytes 0.7 Absolute Monocytes 0.4 Absolute Eosinophils 0.0 Absolute Basophils 0.0 Sodium Potassium Chloride Carbon Dioxide Anion Gap BUN Creatinine Est GFR ( Amer) Est GFR (Non-Af Amer) Glucose Calcium Total Protein 4.6 L Fluid Type PLEURAL Fluid Source LUNG Fluid Color YELLOW Fluid Appearance SLIGHTLY HAZY Fluid Viscosity SLIGHTLY VISCOUS Fluid WBC 193 Fluid RBC 406 08/30/18 05:51 WBC RBC Hgb Hct MCV MCH MCHC RDW Plt Count Seg Neutrophils % Lymphocytes % Monocytes % Eosinophils % Basophils % Absolute Neutrophils Absolute Lymphocytes Absolute Monocytes Absolute Eosinophils Absolute Basophils Sodium 134.7 L Potassium 3.6 Chloride 108 H Carbon Dioxide 21 L Anion Gap 6 BUN 5 L Creatinine 0.40 L Est GFR ( Amer) > 60 Est GFR (Non-Af Amer) > 60 Glucose 85 Calcium 8.1 L Total Protein Fluid Type Fluid Source Fluid Color Fluid Appearance Fluid Viscosity Fluid WBC Fluid RBC Impressions: Hip/Pelvis X-Ray 08/28/18 10:37 IMPRESSION: NO RADIOGRAPHIC EVIDENCE OF ACUTE INJURY. Head CT 08/28/18 10:38 IMPRESSION: NORMAL BRAIN CT WITHOUT CONTRAST. EVIDENCE OF ACUTE STROKE: NO. Abdomen/Pelvis CT 08/28/18 12:11 IMPRESSION: Large right pleural effusion Too numerous to count liver masses worrisome for metastatic lesions Chest CT 08/29/18 00:00 IMPRESSION: 1. Heterogeneously enhancing soft tissue mass in the posterior mediastinum posterior to the anatoliy measuring approximately 3.0 x 2.1 x 3.5 cm concerning for neoplasm. 2. Narrowing of the right upper lobe bronchus with associated right hilar and mediastinal lymphadenopathy and probable postobstructive pneumonia or atelectasis in the right upper lobe. 3. Centrilobular emphysematous changes. 4. Small bilateral pleural effusions with interstitial thickening and alveolar airspace disease in the posterior right lower lobe which may be due to pneumonia or possibly aspiration. There are additional scattered areas of interstitial thickening in the right and left upper lobes. 5. Too numerous to count low density mass lesions within the liver most consistent with metastatic disease. These findings were discussed with the patient's nurse Sandra on 08/30/2018 at 2:48 AM central time. Chest X-Ray 08/29/18 00:00 IMPRESSION: No pneumothorax after thoracentesis. Chronic lung changes. Suprahilar mass on the right. Question right lower lobe pneumonia. Thoracentesis Ultrasound 08/29/18 08:36 IMPRESSION: SUCCESSFUL RIGHT THORACENTESIS USING ULTRASOUND GUIDANCE. Assessment & Plan - Diagnosis (1) Pleural effusion Is this a current diagnosis for this admission?: Yes Plan: Awaiting cytology. Suspected to be malignant. (2) Liver masses Is this a current diagnosis for this admission?: Yes Plan: Suspected now to be metastatic from large mediastinal mass seen on chest CT last night. (3) Hyponatremia Is this a current diagnosis for this admission?: Yes Plan: Improving with some IV fluids. 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 (5) Severe protein-calorie malnutrition Is this a current diagnosis for this admission?: Yes Plan: She is on a regular diet and according to her she is eating everything is being brought to her. - Time Time Spent with patient: 25-34 minutes
[2018-08-30] MEDS: MORPHINE SULFATE 10 MG/ML INJ IV PRN ×2 (16:07→21:22)
[2018-08-30] MEDS: FAMOTIDINE 20 MG TABLET PO SCH (21:10)
[2018-08-30] MEDS: OXYCODONE HCL IR 5 MG TABLET PO PRN (23:52)
[2018-08-30] MEDS: LORAZEPAM INJ 2 MG/1 ML VIAL IV PRN (23:53)
[2018-08-31 05:37] LABS: ABSOLUTE LYMPHOCYTES (AUTO) 0.6 10^3/uL (0.5-4.7); ABSOLUTE MONOCYTES (AUTO) 0.6 10^3/uL (0.1-1.4); ABSOLUTE NEUT (AUTO) 4.1 10^3/uL (1.7-8.2); BASOPHILS % (AUTO) 0.4 % (0-2); EOSINOPHILS % (AUTO) 0.2 % (0-6); HEMATOCRIT 32.5 % (36.0-47.0); HEMOGLOBIN 11.1 g/dL (12.0-15.5); LYMPHOCYTES % (AUTO) 11.8 % (13-45); MEAN CORPUSCULAR HEMOGLOBIN 35.2 pg (27.0-33.4); MEAN CORPUSCULAR HGB CONC 34.2 g/dL (32.0-36.0); MEAN CORPUSCULAR VOLUME 103 fl (80-97); MONOCYTES % (AUTO) 10.8 % (3-13); PLATELET COUNT 140 10^3/uL (150-450); RED BLOOD COUNT 3.16 10^6/uL (3.72-5.28); RED CELL DISTRIBUTION WIDTH 14.7 % (11.5-14.0); SEGMENTED NEUTROPHILS % (AUTO) 76.8 % (42-78); TOTAL CELLS COUNTED % (AUTO) 100 %; WHITE BLOOD COUNT 5.3 10^3/uL (4.0-10.5)
[2018-08-31 05:56] LABS: ANION GAP 5 (5-19); BLOOD UREA NITROGEN 5 mg/dL (7-20); CALCIUM 8.1 mg/dL (8.4-10.2); CARBON DIOXIDE 22 mmol/L (22-30); CHLORIDE 106 mmol/L (98-107); GLUCOSE 83 mg/dL (75-110)
[2018-08-31] MEDS: DOCUSATE SODIUM 100 MG CAPSULE PO SCH (09:13)
[2018-08-31] MEDS: NICOTINE 21 MG/24 HR PATCH.TD24 TD SCH (09:13)
[2018-08-31] MEDS: BISACODYL 5 MG TABEC PO SCH ×2 (09:15→17:02)
[2018-08-31] MEDS: ENOXAPARIN SODIUM INJ 30 MG/0.3 ML DISP.SYRIN SUBCUT SCH (09:16)
--- NOTE | 2018-08-31 16:31 | PDOC PROGRESS REPORT ---
Subjective Progress Note for:: 08/31/18 Subjective:: Patient admitted with pleural effusion as well as liver masses found on CT scan of the chest. She is status post biopsy as well as thoracentesis the results of which are still pending. Patient is very pleasant is examined today and no complaints from the nursing staff. Pleural fluid analysis is still pending total protein, amylase as well as LDH. Clinically patient appears to be breathing pretty well. Pleural fluid cultures negative and no bacteria as was seen on Gram stain. There is no mention of mesothelial cells. Reason For Visit: RIGHT UPPER QUADRANT ABDOMINAL PAIN LARGE RIGHT Physical Exam Vital Signs: Temp Pulse Resp BP Pulse Ox 98.9 F 113 H 12 99/49 L 94 08/31/18 15:39 08/31/18 15:39 08/31/18 15:39 08/31/18 15:39 08/31/18 15:39 Intake & Output 08/30/18 08/31/18 09/01/18 06:59 06:59 06:59 Intake Total 20110 354 Output Total 0 500 475 Balance 112 1280 -121 Weight 40.1 kg 40.2 kg General appearance: PRESENT: no acute distress, cooperative, thin Head exam: PRESENT: atraumatic, normocephalic Eye exam: PRESENT: conjunctiva pink, EOMI, PERRLA. ABSENT: scleral icterus Ear exam: PRESENT: normal external ear exam Mouth exam: PRESENT: moist, tongue midline Neck exam: ABSENT: carotid bruit, JVD, lymphadenopathy, thyromegaly Respiratory exam: PRESENT: clear to auscultation zeke. ABSENT: rales, rhonchi, wheezes Cardiovascular exam: PRESENT: RRR. ABSENT: diastolic murmur, rubs, systolic murmur Pulses: PRESENT: normal dorsalis pedis pul Vascular exam: PRESENT: normal capillary refill GI/Abdominal exam: PRESENT: normal bowel sounds, soft. ABSENT: distended, guarding, mass, organolmegaly, rebound, tenderness Rectal exam: PRESENT: deferred Extremities exam: PRESENT: full ROM. ABSENT: calf tenderness, clubbing, pedal edema Neurological exam: PRESENT: alert, awake, oriented to person, oriented to place , oriented to time, oriented to situation, CN II-XII grossly intact, other - no asterexis. ABSENT: motor sensory deficit Psychiatric exam: PRESENT: appropriate affect, normal mood. ABSENT: homicidal ideation, suicidal ideation Skin exam: PRESENT: dry, intact, warm. ABSENT: cyanosis, rash Results Laboratory Results: 08/31/18 04:41 08/31/18 04:41 08/31/18 08/31/18 04:41 04:41 WBC 5.3 RBC 3.16 L Hgb 11.1 L Hct 32.5 L MCV 103 H MCH 35.2 H MCHC 34.2 RDW 14.7 H Plt Count 140 L Seg Neutrophils % 76.8 Lymphocytes % 11.8 L Monocytes % 10.8 Eosinophils % 0.2 Basophils % 0.4 Absolute Neutrophils 4.1 Absolute Lymphocytes 0.6 Absolute Monocytes 0.6 Absolute Eosinophils 0.0 Absolute Basophils 0.0 Sodium 133.0 L Potassium 4.0 Chloride 106 Carbon Dioxide 22 Anion Gap 5 BUN 5 L Creatinine 0.28 L Est GFR ( Amer) > 60 Est GFR (Non-Af Amer) > 60 Glucose 83 Calcium 8.1 L Impressions: Hip/Pelvis X-Ray 08/28/18 10:37 IMPRESSION: NO RADIOGRAPHIC EVIDENCE OF ACUTE INJURY. Head CT 08/28/18 10:38 IMPRESSION: NORMAL BRAIN CT WITHOUT CONTRAST. EVIDENCE OF ACUTE STROKE: NO. Abdomen/Pelvis CT 08/28/18 12:11 IMPRESSION: Large right pleural effusion Too numerous to count liver masses worrisome for metastatic lesions Chest CT 08/29/18 00:00 IMPRESSION: 1. Heterogeneously enhancing soft tissue mass in the posterior mediastinum posterior to the anatoliy measuring approximately 3.0 x 2.1 x 3.5 cm concerning for neoplasm. 2. Narrowing of the right upper lobe bronchus with associated right hilar and mediastinal lymphadenopathy and probable postobstructive pneumonia or atelectasis in the right upper lobe. 3. Centrilobular emphysematous changes. 4. Small bilateral pleural effusions with interstitial thickening and alveolar airspace disease in the posterior right lower lobe which may be due to pneumonia or possibly aspiration. There are additional scattered areas of interstitial thickening in the right and left upper lobes. 5. Too numerous to count low density mass lesions within the liver most consistent with metastatic disease. These findings were discussed with the patient's nurse Sandra on 08/30/2018 at 2:48 AM central time. Chest X-Ray 08/29/18 00:00 IMPRESSION: No pneumothorax after thoracentesis. Chronic lung changes. Suprahilar mass on the right. Question right lower lobe pneumonia. Thoracentesis Ultrasound 08/29/18 08:36 IMPRESSION: SUCCESSFUL RIGHT THORACENTESIS USING ULTRASOUND GUIDANCE. 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 Is this a current diagnosis for this admission?: Yes (2) Hyponatremia Is this a current diagnosis for this admission?: Yes (3) Liver masses Is this a current diagnosis for this admission?: Yes (4) Pleural effusion Is this a current diagnosis for this admission?: Yes (5) Severe protein-calorie malnutrition Is this a current diagnosis for this admission?: Yes - Time Time Spent with patient: 15-24 minutes Medications reviewed and adjusted accordingly: Yes Anticipated discharge: Home Within: within 72 hours - Inpatient Certification Based on my medical assessment, after consideration of the patient's comorbidities, presenting symptoms, or acuity I expect that the services needed warrant INPATIENT care.: Yes Medical Necessity: Significant Comorbidiites Make Outpatient Treatment Too Risky , Risk of Complication if Not Cared For in Hospital - Plan Summary Plan Summary: We will follow-up with cytology result and referred to the appropriate specialist patient also has liver masses and there is also suspected to be of metastatic origin from the large mediastinal mass seen on CT scan of the chest. Hyponatremia may be secondary to alcohol abuse as well as underlying malignancy if she does have a malignancy. Sodium is improved Alcohol dependency currently there are no signs of withdrawal Severe protein calorie malnutrition likely related to alcohol abuse will encourage supplements. We will have to watch out for refeeding alkalosis
[2018-08-31] MEDS: MORPHINE SULFATE 10 MG/ML INJ IV PRN (18:33)
[2018-08-31] MEDS: LORAZEPAM INJ 2 MG/1 ML VIAL IV PRN (18:57)
[2018-08-31] MEDS: NORMAL SALINE 1000 ML 1,000 ML IV PRN (21:06)
[2018-08-31] MEDS: FAMOTIDINE 20 MG TABLET PO SCH (21:26)
[2018-09-01] MEDS: LORAZEPAM INJ 2 MG/1 ML VIAL IV PRN ×3 (03:40→18:27)
[2018-09-01] MEDS: MORPHINE SULFATE 10 MG/ML INJ IV PRN ×2 (04:49→19:50)
[2018-09-01] MEDS: DOCUSATE SODIUM 100 MG CAPSULE PO SCH (09:40)
[2018-09-01] MEDS: NICOTINE 21 MG/24 HR PATCH.TD24 TD SCH (09:40)
[2018-09-01] MEDS: BISACODYL 5 MG TABEC PO SCH ×2 (09:41→17:21)
[2018-09-01] MEDS: LEVOFLOXACIN 750 MG TABLET PO SCH (10:39)
[2018-09-01] MEDS: NORMAL SALINE 1000 ML 1,000 ML IV PRN (10:40)
[2018-09-01] MEDS: ENOXAPARIN SODIUM INJ 30 MG/0.3 ML DISP.SYRIN SUBCUT SCH (10:43)
--- NOTE | 2018-09-01 14:58 | PDOC PROGRESS REPORT ---
Subjective Progress Note for:: 09/01/18 Subjective:: Patient admitted with pleural effusion as well as liver masses found on CT scan of the chest. She is status post biopsy as well as thoracentesis the results of which are still pending. Patient is very pleasant is examined today and no complaints from the nursing staff. Pleural fluid analysis is still pending total protein, amylase as well as LDH. Clinically patient appears to be breathing pretty well. Pleural fluid cultures negative and no bacteriaon Gram stain. There is no mention of mesothelial cells. patient eating breakfast this am. No change in clinical condition Reason For Visit: RIGHT UPPER QUADRANT ABDOMINAL PAIN LARGE RIGHT Physical Exam Vital Signs: Temp Pulse Resp BP Pulse Ox 97.4 F 98 12 114/58 L 94 09/01/18 12:00 09/01/18 14:00 09/01/18 12:00 09/01/18 12:00 09/01/18 12:00 Intake & Output 08/31/18 09/01/18 09/02/18 06:59 06:59 06:59 Intake Total 1780 1404 1000 Output Total 500 875 Balance 0538 737 9104 Weight 40.2 kg 41.3 kg General appearance: PRESENT: no acute distress, other - Undernourished Head exam: PRESENT: atraumatic, normocephalic Eye exam: PRESENT: conjunctiva pink, EOMI, PERRLA. ABSENT: scleral icterus Ear exam: PRESENT: normal external ear exam Mouth exam: PRESENT: moist, tongue midline Neck exam: ABSENT: carotid bruit, JVD, lymphadenopathy, thyromegaly Respiratory exam: PRESENT: clear to auscultation zeke. ABSENT: rales, rhonchi, wheezes Cardiovascular exam: PRESENT: RRR. ABSENT: diastolic murmur, rubs, systolic murmur Pulses: PRESENT: normal dorsalis pedis pul Vascular exam: PRESENT: normal capillary refill GI/Abdominal exam: PRESENT: normal bowel sounds, soft. ABSENT: distended, guarding, mass, organolmegaly, rebound, tenderness Rectal exam: PRESENT: deferred Extremities exam: PRESENT: full ROM. ABSENT: calf tenderness, clubbing, pedal edema Neurological exam: PRESENT: alert, awake, oriented to person, oriented to place , oriented to time, oriented to situation, CN II-XII grossly intact. ABSENT: motor sensory deficit Psychiatric exam: PRESENT: appropriate affect, normal mood. ABSENT: homicidal ideation, suicidal ideation Skin exam: PRESENT: dry, intact, warm. ABSENT: cyanosis, rash Results Laboratory Results: 08/31/18 04:41 08/31/18 04:41 08/29/18 08/29/18 08/29/18 16:00 16:00 16:00 Fluid Glucose 109 Fluid Total Protein 2.9 Fluid LDH Fluid Amylase 21 08/29/18 16:00 Fluid Glucose Fluid Total Protein Fluid LDH 698 Fluid Amylase Impressions: Hip/Pelvis X-Ray 08/28/18 10:37 IMPRESSION: NO RADIOGRAPHIC EVIDENCE OF ACUTE INJURY. Head CT 08/28/18 10:38 IMPRESSION: NORMAL BRAIN CT WITHOUT CONTRAST. EVIDENCE OF ACUTE STROKE: NO. Abdomen/Pelvis CT 08/28/18 12:11 IMPRESSION: Large right pleural effusion Too numerous to count liver masses worrisome for metastatic lesions Chest CT 08/29/18 00:00 IMPRESSION: 1. Heterogeneously enhancing soft tissue mass in the posterior mediastinum posterior to the anatoliy measuring approximately 3.0 x 2.1 x 3.5 cm concerning for neoplasm. 2. Narrowing of the right upper lobe bronchus with associated right hilar and mediastinal lymphadenopathy and probable postobstructive pneumonia or atelectasis in the right upper lobe. 3. Centrilobular emphysematous changes. 4. Small bilateral pleural effusions with interstitial thickening and alveolar airspace disease in the posterior right lower lobe which may be due to pneumonia or possibly aspiration. There are additional scattered areas of interstitial thickening in the right and left upper lobes. 5. Too numerous to count low density mass lesions within the liver most consistent with metastatic disease. These findings were discussed with the patient's nurse Sandra on 08/30/2018 at 2:48 AM central time. Chest X-Ray 08/29/18 00:00 IMPRESSION: No pneumothorax after thoracentesis. Chronic lung changes. Suprahilar mass on the right. Question right lower lobe pneumonia. Thoracentesis Ultrasound 08/29/18 08:36 IMPRESSION: SUCCESSFUL RIGHT THORACENTESIS USING ULTRASOUND GUIDANCE. 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 Is this a current diagnosis for this admission?: Yes (2) Hyponatremia Is this a current diagnosis for this admission?: Yes (3) Liver masses Is this a current diagnosis for this admission?: Yes (4) Pleural effusion Is this a current diagnosis for this admission?: Yes (5) Severe protein-calorie malnutrition Is this a current diagnosis for this admission?: Yes - Time Time Spent with patient: 15-24 minutes Medications reviewed and adjusted accordingly: Yes Anticipated discharge: Home Within: within 72 hours - Inpatient Certification Based on my medical assessment, after consideration of the patient's comorbidities, presenting symptoms, or acuity I expect that the services needed warrant INPATIENT care.: Yes Medical Necessity: Need Close Monitoring Due to Risk of Patient Decompensation, Risk of Complication if Not Cared For in Hospital - Plan Summary Plan Summary: We will follow-up with cytology result and referred to the appropriate specialist patient also has liver masses and there is also suspected to be of metastatic origin from the large mediastinal mass seen on CT scan of the chest. Hyponatremia may be secondary to alcohol abuse as well as underlying malignancy if she does have a malignancy. Sodium is improved to stable Alcohol dependency -there are no signs of withdrawal Severe protein calorie malnutrition likely related to alcohol abuse continue to encourage supplements.
[2018-09-01] MEDS: FAMOTIDINE 20 MG TABLET PO SCH (21:52)
[2018-09-02] MEDS: NICOTINE 21 MG/24 HR PATCH.TD24 TD SCH (10:08)
[2018-09-02] MEDS: DOCUSATE SODIUM 100 MG CAPSULE PO SCH (10:13)
[2018-09-02] MEDS: BISACODYL 5 MG TABEC PO SCH ×2 (10:13→17:36)
[2018-09-02] MEDS: LORAZEPAM INJ 2 MG/1 ML VIAL IV PRN ×2 (10:18→18:20)
[2018-09-02] MEDS: ENOXAPARIN SODIUM INJ 30 MG/0.3 ML DISP.SYRIN SUBCUT SCH (10:19)
[2018-09-02] MEDS: NORMAL SALINE 1000 ML 1,000 ML IV PRN ×2 (11:19→15:24)
--- NOTE | 2018-09-02 13:25 | PDOC PROGRESS REPORT ---
Subjective Subjective:: Patient admitted with pleural effusion as well as liver masses found on CT scan of the chest. She is status post biopsy as well as thoracentesis the results of which are still pending. Patient is very pleasant is examined today and no complaints from the nursing staff. Pleural fluid analysis is still pending total protein, amylase as well as LDH. Clinically patient appears to be breathing pretty well. Pleural fluid cultures negative and no bacteriaon Gram stain. There is no mention of mesothelial cells. Patient laying in bed. Extensive discussion with patient regarding her CODE STATUS and further management. Please see discussions below. No change in clinical condition Reason For Visit: RIGHT UPPER QUADRANT ABDOMINAL PAIN LARGE RIGHT Physical Exam Vital Signs: Temp Pulse Resp BP Pulse Ox 98.6 F 97 20 130/60 H 87 L 09/02/18 00:12 09/02/18 07:00 09/01/18 15:23 09/02/18 00:12 09/02/18 00:12 Intake & Output 09/01/18 09/02/18 09/03/18 06:59 06:59 06:59 Intake Total 1404 2438 Output Total 875 450 Balance 529 1988 Weight 41.3 kg 48.6 kg General appearance: PRESENT: no acute distress, other - Cachectic chronically ill looking but nontoxic Head exam: PRESENT: atraumatic, normocephalic Eye exam: PRESENT: conjunctiva pink, EOMI, PERRLA. ABSENT: scleral icterus Ear exam: PRESENT: normal external ear exam Mouth exam: PRESENT: moist, tongue midline Neck exam: ABSENT: carotid bruit, JVD, lymphadenopathy, thyromegaly Respiratory exam: PRESENT: clear to auscultation zeke. ABSENT: rales, rhonchi, wheezes Cardiovascular exam: PRESENT: RRR. ABSENT: diastolic murmur, rubs, systolic murmur Pulses: PRESENT: normal dorsalis pedis pul Vascular exam: PRESENT: normal capillary refill GI/Abdominal exam: PRESENT: normal bowel sounds, soft. ABSENT: distended, guarding, mass, organolmegaly, rebound, tenderness Rectal exam: PRESENT: deferred Extremities exam: PRESENT: full ROM, +2 edema. ABSENT: calf tenderness, clubbing, pedal edema Neurological exam: PRESENT: alert, awake, oriented to person, oriented to place , oriented to time, oriented to situation, CN II-XII grossly intact. ABSENT: motor sensory deficit Psychiatric exam: PRESENT: appropriate affect, normal mood. ABSENT: homicidal ideation, suicidal ideation Skin exam: PRESENT: dry, intact, warm. ABSENT: cyanosis, rash Results Laboratory Results: 08/31/18 04:41 08/31/18 04:41 08/29/18 16:00 Pleural Fluid - Right Pleural Effusion Gram Stain - Final 08/29/18 16:00 Pleural Fluid - Right Pleural Effusion Body Fluid Culture - Final NO AEROBIC OR ANAEROBIC ORGANISMS RECOVERED Impressions: Hip/Pelvis X-Ray 08/28/18 10:37 IMPRESSION: NO RADIOGRAPHIC EVIDENCE OF ACUTE INJURY. Head CT 08/28/18 10:38 IMPRESSION: NORMAL BRAIN CT WITHOUT CONTRAST. EVIDENCE OF ACUTE STROKE: NO. Abdomen/Pelvis CT 08/28/18 12:11 IMPRESSION: Large right pleural effusion Too numerous to count liver masses worrisome for metastatic lesions Chest CT 08/29/18 00:00 IMPRESSION: 1. Heterogeneously enhancing soft tissue mass in the posterior mediastinum posterior to the anatoliy measuring approximately 3.0 x 2.1 x 3.5 cm concerning for neoplasm. 2. Narrowing of the right upper lobe bronchus with associated right hilar and mediastinal lymphadenopathy and probable postobstructive pneumonia or atelectasis in the right upper lobe. 3. Centrilobular emphysematous changes. 4. Small bilateral pleural effusions with interstitial thickening and alveolar airspace disease in the posterior right lower lobe which may be due to pneumonia or possibly aspiration. There are additional scattered areas of interstitial thickening in the right and left upper lobes. 5. Too numerous to count low density mass lesions within the liver most consistent with metastatic disease. These findings were discussed with the patient's nurse Sandra on 08/30/2018 at 2:48 AM central time. Chest X-Ray 08/29/18 00:00 IMPRESSION: No pneumothorax after thoracentesis. Chronic lung changes. Suprahilar mass on the right. Question right lower lobe pneumonia. Thoracentesis Ultrasound 08/29/18 08:36 IMPRESSION: SUCCESSFUL RIGHT THORACENTESIS USING ULTRASOUND GUIDANCE. 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 Is this a current diagnosis for this admission?: Yes (2) Hyponatremia Is this a current diagnosis for this admission?: Yes (3) Liver masses Is this a current diagnosis for this admission?: Yes (4) Pleural effusion Is this a current diagnosis for this admission?: Yes (5) Severe protein-calorie malnutrition Is this a current diagnosis for this admission?: Yes - Time Time Spent with patient: 15-24 minutes Medications reviewed and adjusted accordingly: Yes Anticipated discharge: Acute Rehab - Inpatient Certification Based on my medical assessment, after consideration of the patient's comorbidities, presenting symptoms, or acuity I expect that the services needed warrant INPATIENT care.: Yes Medical Necessity: Need Close Monitoring Due to Risk of Patient Decompensation, Risk of Complication if Not Cared For in Hospital - Plan Summary Plan Summary: Extensive discussion with patient today regarding liver masses and suspected to be of metastatic origin from the large mediastinal mass seen on CT scan of the chest. Patient states categorically that she does not want any chemotherapy or any radiation therapy or any management for this. She is aware of the potential seriousness of the situation. She states she has was her daughter fight with cancer over the last few years and she is now willing to go through the same thing. She is awake and alert and oriented and able to make her own decisions. I called her nurse Magda who witnessed the conversation. Patient says her family is aware of her wishes. She would like to get stronger before she can go home and is willing to go to rehab. During the same discussion patient states that she wants to be DO NOT RESUSCITATE. She has no interest in being placed on breathing machine or be shocked if her heart stops. She understands that I would make a DO NOT RESUSCITATE and she is quite comfortable with this. Hyponatremia likely secondary to alcohol abuse as well as underlying malignancy if she does have a malignancy. Sodium is improved to stable Alcohol dependency -there are no signs of withdrawal Severe protein calorie malnutrition likely related to alcohol abuse continue to encourage supplements.
[2018-09-02] MEDS: MORPHINE SULFATE 10 MG/ML INJ IV PRN (15:13)
[2018-09-02] MEDS: FAMOTIDINE 20 MG TABLET PO SCH (21:40)
[2018-09-03] MEDS: LORAZEPAM INJ 2 MG/1 ML VIAL IV PRN ×2 (03:54→14:08)
[2018-09-03] MEDS: NORMAL SALINE 1000 ML 1,000 ML IV PRN (07:03)
[2018-09-03] MEDS: LEVOFLOXACIN 750 MG TABLET PO SCH (10:19)
[2018-09-03] MEDS: ENOXAPARIN SODIUM INJ 30 MG/0.3 ML DISP.SYRIN SUBCUT SCH (10:19)
[2018-09-03] MEDS: DOCUSATE SODIUM 100 MG CAPSULE PO SCH (10:19)
[2018-09-03] MEDS: BISACODYL 5 MG TABEC PO SCH ×2 (10:19→17:28)
[2018-09-03] MEDS: NICOTINE 21 MG/24 HR PATCH.TD24 TD SCH (10:23)
--- NOTE | 2018-09-03 14:12 | PDOC PROGRESS REPORT ---
Subjective Progress Note for:: 09/03/18 Subjective:: Patient admitted with pleural effusion as well as liver masses found on CT scan of the chest. She is status post biopsy as well as thoracentesis the results of which are still pending. Patient is very pleasant is examined today and no complaints from the nursing staff. Pleural fluid analysis is still pending total protein, amylase as well as LDH. Clinically patient appears to be breathing pretty well. Pleural fluid cultures negative and no bacteriaon Gram stain. There is no mention of mesothelial cells. Patient laying in bed. No change in clinical condition She continues to affirm no interest in chemo or radiation therapy. She just wants to go home and "" Palliative care consult is pending. D/w Dr. Trinidad 09/02 re cytology result. At this point no consult requested given patient's desire not to pursue treatment Reason For Visit: RIGHT UPPER QUADRANT ABDOMINAL PAIN LARGE RIGHT Physical Exam Vital Signs: Temp Pulse Resp BP Pulse Ox 97.6 F 108 H 18 122/69 91 L 09/03/18 11:07 09/03/18 11:07 09/03/18 11:07 09/03/18 11:07 09/03/18 07:30 Intake & Output 09/02/18 09/03/18 09/04/18 06:59 06:59 06:59 Intake Total 2438 508 783 Output Total 450 650 Balance 1988 -142 783 Weight 48.6 kg 55.8 kg General appearance: PRESENT: no acute distress, cooperative, thin, other - undernourished, cachectic Head exam: PRESENT: atraumatic Eye exam: PRESENT: PERRLA Neck exam: ABSENT: carotid bruit, JVD, lymphadenopathy, thyromegaly Respiratory exam: PRESENT: clear to auscultation zeke. ABSENT: rales, rhonchi, wheezes GI/Abdominal exam: PRESENT: normal bowel sounds, soft. ABSENT: distended, guarding, mass, organolmegaly, rebound, tenderness Rectal exam: PRESENT: deferred Extremities exam: PRESENT: +2 edema - lower extremities Neurological exam: PRESENT: alert, awake, oriented to person, oriented to place , oriented to time Skin exam: PRESENT: other - L heel with pressure injury Results Laboratory Results: 08/31/18 04:41 08/31/18 04:41 Impressions: Hip/Pelvis X-Ray 08/28/18 10:37 IMPRESSION: NO RADIOGRAPHIC EVIDENCE OF ACUTE INJURY. Head CT 08/28/18 10:38 IMPRESSION: NORMAL BRAIN CT WITHOUT CONTRAST. EVIDENCE OF ACUTE STROKE: NO. Abdomen/Pelvis CT 08/28/18 12:11 IMPRESSION: Large right pleural effusion Too numerous to count liver masses worrisome for metastatic lesions Chest CT 08/29/18 00:00 IMPRESSION: 1. Heterogeneously enhancing soft tissue mass in the posterior mediastinum posterior to the anatoliy measuring approximately 3.0 x 2.1 x 3.5 cm concerning for neoplasm. 2. Narrowing of the right upper lobe bronchus with associated right hilar and mediastinal lymphadenopathy and probable postobstructive pneumonia or atelectasis in the right upper lobe. 3. Centrilobular emphysematous changes. 4. Small bilateral pleural effusions with interstitial thickening and alveolar airspace disease in the posterior right lower lobe which may be due to pneumonia or possibly aspiration. There are additional scattered areas of interstitial thickening in the right and left upper lobes. 5. Too numerous to count low density mass lesions within the liver most consistent with metastatic disease. These findings were discussed with the patient's nurse Sandra on 08/30/2018 at 2:48 AM central time. Chest X-Ray 08/29/18 00:00 IMPRESSION: No pneumothorax after thoracentesis. Chronic lung changes. Suprahilar mass on the right. Question right lower lobe pneumonia. Thoracentesis Ultrasound 08/29/18 08:36 IMPRESSION: SUCCESSFUL RIGHT THORACENTESIS USING ULTRASOUND GUIDANCE. 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 Is this a current diagnosis for this admission?: Yes (2) Hyponatremia Is this a current diagnosis for this admission?: Yes (3) Liver masses Is this a current diagnosis for this admission?: Yes (4) Pleural effusion Is this a current diagnosis for this admission?: Yes (5) Severe protein-calorie malnutrition Is this a current diagnosis for this admission?: Yes (6) Metastatic lung carcinoma Qualifiers: Laterality: unspecified laterality Qualified Code(s): C78.00 - Secondary malignant neoplasm of unspecified lung Is this a current diagnosis for this admission?: Yes Plan: Cytology reveals low volume metastatic carcinoma favored to be a lung primary it is difficult to state if this is small cell or non-small cell due to the low volume. At any rate patient has a stage IV metastatic carcinoma with likely primary origin of the lung. Although she does have liver masses at this point given the patient does not want any kind of treatment will defer any further interventions. (7) Postobstructive pneumonia Is this a current diagnosis for this admission?: Yes Plan: Patient is on Levaquin day #6. Clinically her breathing is improved. Will complete a 10-day course - Time Time Spent with patient: 15-24 minutes Medications reviewed and adjusted accordingly: Yes Anticipated discharge: Acute Rehab Within: within 48 hours - Inpatient Certification Based on my medical assessment, after consideration of the patient's comorbidities, presenting symptoms, or acuity I expect that the services needed warrant INPATIENT care.: Yes Medical Necessity: Need Close Monitoring Due to Risk of Patient Decompensation, Risk of Complication if Not Cared For in Hospital - Plan Summary Plan Summary: Overall prognosis is poor And is for acute rehab if patient can tolerate this and palliative care consultation is still pending
[2018-09-03] MEDS: MORPHINE SULFATE 10 MG/ML INJ IV PRN (17:28)
[2018-09-03] MEDS: FAMOTIDINE 20 MG TABLET PO SCH (22:00)
[2018-09-04] MEDS: LORAZEPAM INJ 2 MG/1 ML VIAL IV PRN (03:25)
[2018-09-04] MEDS: NORMAL SALINE 1000 ML 1,000 ML IV PRN ×2 (04:25→22:37)
[2018-09-04] MEDS: DOCUSATE SODIUM 100 MG CAPSULE PO SCH (11:10)
[2018-09-04] MEDS: BISACODYL 5 MG TABEC PO SCH ×2 (11:10→17:28)
[2018-09-04] MEDS: NICOTINE 21 MG/24 HR PATCH.TD24 TD SCH (11:10)
[2018-09-04] MEDS: ENOXAPARIN SODIUM INJ 30 MG/0.3 ML DISP.SYRIN SUBCUT SCH (11:11)
[2018-09-04] MEDS: MORPHINE SULFATE 10 MG/ML INJ IV PRN (11:56)
--- NOTE | 2018-09-04 12:59 | PDOC PROGRESS REPORT ---
Subjective Progress Note for:: 09/04/18 Subjective:: Patient admitted with pleural effusion as well as liver masses found on CT scan of the chest. She is status post biopsy as well as thoracentesis the results of which are still pending. Patient is very pleasant is examined today and no complaints from the nursing staff. Pleural fluid analysis is still pending total protein, amylase as well as LDH. Clinically patient appears to be breathing pretty well. Pleural fluid cultures negative and no bacteriaon Gram stain. There is no mention of mesothelial cells. Patient laying in bed. No change in clinical condition She continues to affirm no interest in chemo or radiation therapy. She just wants to go home and "" Palliative care consult is pending. D/w Dr. Trinidad 09/02 re cytology result. At this point no consult requested given patient's desire not to pursue treatment Awaiting palliative care and home care arrangements so patient can be dc home Reason For Visit: RIGHT UPPER QUADRANT ABDOMINAL PAIN LARGE RIGHT Physical Exam Vital Signs: Temp Pulse Resp BP Pulse Ox 98.1 F 100 17 142/69 H 95 09/04/18 11:35 09/04/18 11:35 09/04/18 11:35 09/04/18 11:35 09/04/18 11:35 Intake & Output 09/03/18 09/04/18 09/05/18 06:59 06:59 06:59 Intake Total 508 2281 Output Total 650 550 Balance -142 1731 Weight 55.8 kg 55.4 kg General appearance: PRESENT: thin, other - cachectic Head exam: PRESENT: atraumatic Eye exam: PRESENT: conjunctiva pink, EOMI, PERRLA. ABSENT: scleral icterus Respiratory exam: PRESENT: clear to auscultation zeke. ABSENT: rales, rhonchi, wheezes GI/Abdominal exam: PRESENT: normal bowel sounds, soft. ABSENT: distended, guarding, mass, organolmegaly, rebound, tenderness Rectal exam: PRESENT: deferred Neurological exam: PRESENT: alert, other Results Laboratory Results: 08/31/18 04:41 08/31/18 04:41 Impressions: Hip/Pelvis X-Ray 08/28/18 10:37 IMPRESSION: NO RADIOGRAPHIC EVIDENCE OF ACUTE INJURY. Head CT 08/28/18 10:38 IMPRESSION: NORMAL BRAIN CT WITHOUT CONTRAST. EVIDENCE OF ACUTE STROKE: NO. Abdomen/Pelvis CT 08/28/18 12:11 IMPRESSION: Large right pleural effusion Too numerous to count liver masses worrisome for metastatic lesions Chest CT 08/29/18 00:00 IMPRESSION: 1. Heterogeneously enhancing soft tissue mass in the posterior mediastinum posterior to the anatoliy measuring approximately 3.0 x 2.1 x 3.5 cm concerning for neoplasm. 2. Narrowing of the right upper lobe bronchus with associated right hilar and mediastinal lymphadenopathy and probable postobstructive pneumonia or atelectasis in the right upper lobe. 3. Centrilobular emphysematous changes. 4. Small bilateral pleural effusions with interstitial thickening and alveolar airspace disease in the posterior right lower lobe which may be due to pneumonia or possibly aspiration. There are additional scattered areas of interstitial thickening in the right and left upper lobes. 5. Too numerous to count low density mass lesions within the liver most consistent with metastatic disease. These findings were discussed with the patient's nurse Sandra on 08/30/2018 at 2:48 AM central time. Chest X-Ray 08/29/18 00:00 IMPRESSION: No pneumothorax after thoracentesis. Chronic lung changes. Suprahilar mass on the right. Question right lower lobe pneumonia. Thoracentesis Ultrasound 08/29/18 08:36 IMPRESSION: SUCCESSFUL RIGHT THORACENTESIS USING ULTRASOUND GUIDANCE. 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 Is this a current diagnosis for this admission?: Yes (2) Hyponatremia Is this a current diagnosis for this admission?: Yes (3) Liver masses Is this a current diagnosis for this admission?: Yes (4) Pleural effusion Is this a current diagnosis for this admission?: Yes (5) Severe protein-calorie malnutrition Is this a current diagnosis for this admission?: Yes Plan: Encourage nutrition (6) Metastatic lung carcinoma Qualifiers: Laterality: unspecified laterality Qualified Code(s): C78.00 - Secondary malignant neoplasm of unspecified lung Is this a current diagnosis for this admission?: Yes Plan: Cytology reveals low volume metastatic carcinoma favored to be a lung primary it is difficult to state if this is small cell or non-small cell due to the low volume. At any rate patient has a stage IV metastatic carcinoma with likely primary origin of the lung. No further interventions planned (7) Postobstructive pneumonia Is this a current diagnosis for this admission?: Yes - Time Time Spent with patient: 15-24 minutes Medications reviewed and adjusted accordingly: Yes Anticipated discharge: Hospice Within: within 72 hours - Inpatient Certification Based on my medical assessment, after consideration of the patient's comorbidities, presenting symptoms, or acuity I expect that the services needed warrant INPATIENT care.: Yes Medical Necessity: Risk of Diagnosis Which Will Require Inpatient Eval/Care/ Monitoring, Other Post Hospital Care: Other - Arrangement for hospice care
[2018-09-04] MEDS ORDERED: LORAZEPAM INJ 2 MG/1 ML VIAL ONE (17:13)
[2018-09-04] MEDS ORDERED: LACTULOSE SYRUP 20 GM/30 ML UDCUP PO PRN (17:16)
[2018-09-04] MEDS ORDERED: MORPHINE SULFATE 10 MG/ML INJ IV PRN ×2 (17:17→17:30)
[2018-09-04] MEDS ORDERED: OXYCODONE HCL IR 5 MG TABLET PO PRN (20:27)
[2018-09-04] MEDS: FAMOTIDINE 20 MG TABLET PO SCH (22:38)
[2018-09-05] MEDS: LORAZEPAM INJ 2 MG/1 ML VIAL IV PRN ×2 (04:49→11:52)
--- NOTE | 2018-09-05 08:07 | PDOC TRANSFER SUMMARY ---
General - Admit/Disc Date/PCP Admission Date/Primary Care Provider: 08/28/18 14:41 Discharge Date: 09/05/18 - Discharge Diagnosis (1) Metastatic lung carcinoma Is this a current diagnosis for this admission?: Yes (2) Alcohol dependency Is this a current diagnosis for this admission?: Yes (3) Liver masses Is this a current diagnosis for this admission?: Yes (4) Pleural effusion Is this a current diagnosis for this admission?: Yes (5) Severe protein-calorie malnutrition Is this a current diagnosis for this admission?: Yes (6) Postobstructive pneumonia Is this a current diagnosis for this admission?: Yes (7) Hyponatremia Is this a current diagnosis for this admission?: Yes - Additional Information Resuscitation Status: Do Not Resuscitate Discharge Diet: As Tolerated Discharge Activity: Activity As Tolerated Prescriptions: Oxycodone HCl [Oxy-Ir 5 mg Tablet] 5 mg PO Q4HP PRN #20 tablet PRN Reason: Home Medications: Docusate Sodium [Colace 100 mg Capsule] 100 mg PO DAILY capsule 09/05/18 Ibuprofen [Motrin 400 mg Tablet] 400 mg PO Q6HP PRN tablet 09/05/18 Ipratropium/Albuterol Sulfate [Duoneb 3 ml Ampul] 3 ml NEB RTQ4HP PRN vial.neb 09/05/18 Oxycodone HCl [Oxy-Ir 5 mg Tablet] 5 mg PO Q4HP PRN #20 tablet 09/05/18 History of Present Illness Admission Date/PCP: 08/28/18 14:41 History of Present Illness: DOMINICK KABA is a 67 year old female sent to the hospital via ambulance after the daughter called EMS. Patient tried to ambulate to the bathroom and walked into the door. Daughter states her mother is an alcoholic has been in the house for 5 years she has never gone out of the house she does not see doctors. She has had gradual weight loss over the past year. She is having increasing complaint of pain in the right side of her abdomen which is why the daughter called EMS. Upon arrival to the ER patient is a cachectic appearing white female CT of the head showed no acute pathology a CT of the abdomen was done due to the abdominal pain which showed numerous lesions in the liver. Patient had no fever normal white count her sodium was low at 130 likely due to her alcoholism there was a large right pleural effusion on CT as well. Patient has no knowledge of underlying cancer as she has never sought any medical care. Her last healthcare encounter was cholecystectomy in 2012. She denies hematochezia melena she does use BC powder daily. She smokes up to 2 packs a day. Her coagulation studies were surprisingly normal and she has a history of urinary retention with overflow incontinence. Hospital Course Hospital Course: This patient presents to the emergency room with complaints of difficulty breathing and shortness of breath. She was found to have numerous metastatic lesions in the liver as well as pleural effusion on imaging studies. She had a thoracentesis done and this resulted with metastatic carcinoma favored to be lung primary although due to the low volume a definite delineation cannot be done. Patient opted not to pursue any further treatment of management of the malignancy which appeared to be advanced and so no further biopsies were obtained. Patient was treated for postobstructive pneumonia while in hospital. She is very malnourished likely a combination of malignancy as well as alcohol abuse history. Her CODE STATUS was changed to DO NOT RESUSCITATE and palliative care consult has been obtained which will be followed up at the half-way Patient prognosis is very poor given her diagnoses and other comorbidities. She has opted for no further treatment or evaluation of the presumed metastatic lung cancer which given her condition is an appropriate choice and comfort care should be encouraged. Physical Exam Vital Signs: Temp Pulse Resp BP Pulse Ox 97.5 F 112 H 18 134/77 H 93 09/05/18 07:27 09/05/18 07:27 09/05/18 07:27 09/05/18 07:27 09/05/18 07:27 Intake & Output 09/04/18 09/05/18 09/06/18 06:59 06:59 06:59 Intake Total 2281 1028 Output Total 550 450 Balance 1731 578 Weight 55.4 kg 56.2 kg General appearance: PRESENT: no acute distress, cooperative, other - cachectic Head exam: PRESENT: atraumatic, normocephalic Eye exam: PRESENT: conjunctiva pink, EOMI, PERRLA. ABSENT: scleral icterus Ear exam: PRESENT: normal external ear exam Neck exam: ABSENT: carotid bruit, JVD, lymphadenopathy, thyromegaly Respiratory exam: PRESENT: clear to auscultation zeke. ABSENT: rales, rhonchi, wheezes Cardiovascular exam: PRESENT: RRR, +S1, +S2. ABSENT: diastolic murmur, rubs, systolic murmur Pulses: PRESENT: normal dorsalis pedis pul Vascular exam: PRESENT: normal capillary refill GI/Abdominal exam: PRESENT: normal bowel sounds, soft. ABSENT: distended, guarding, mass, organolmegaly, rebound, tenderness Rectal exam: PRESENT: deferred Extremities exam: PRESENT: full ROM, +2 edema. ABSENT: calf tenderness, clubbing, pedal edema Neurological exam: PRESENT: alert, awake, oriented to person, oriented to place , oriented to time, oriented to situation, CN II-XII grossly intact. ABSENT: motor sensory deficit Psychiatric exam: PRESENT: appropriate affect, normal mood. ABSENT: homicidal ideation, suicidal ideation Skin exam: PRESENT: dry, warm, other - L heel. ABSENT: cyanosis, rash Results Laboratory Results: 08/31/18 04:41 08/31/18 04:41 Impressions: Hip/Pelvis X-Ray 08/28/18 10:37 IMPRESSION: NO RADIOGRAPHIC EVIDENCE OF ACUTE INJURY. Head CT 08/28/18 10:38 IMPRESSION: NORMAL BRAIN CT WITHOUT CONTRAST. EVIDENCE OF ACUTE STROKE: NO. Abdomen/Pelvis CT 08/28/18 12:11 IMPRESSION: Large right pleural effusion Too numerous to count liver masses worrisome for metastatic lesions Chest CT 08/29/18 00:00 IMPRESSION: 1. Heterogeneously enhancing soft tissue mass in the posterior mediastinum posterior to the anatoliy measuring approximately 3.0 x 2.1 x 3.5 cm concerning for neoplasm. 2. Narrowing of the right upper lobe bronchus with associated right hilar and mediastinal lymphadenopathy and probable postobstructive pneumonia or atelectasis in the right upper lobe. 3. Centrilobular emphysematous changes. 4. Small bilateral pleural effusions with interstitial thickening and alveolar airspace disease in the posterior right lower lobe which may be due to pneumonia or possibly aspiration. There are additional scattered areas of interstitial thickening in the right and left upper lobes. 5. Too numerous to count low density mass lesions within the liver most consistent with metastatic disease. These findings were discussed with the patient's nurse Sandra on 08/30/2018 at 2:48 AM central time. Chest X-Ray 08/29/18 00:00 IMPRESSION: No pneumothorax after thoracentesis. Chronic lung changes. Suprahilar mass on the right. Question right lower lobe pneumonia. Thoracentesis Ultrasound 08/29/18 08:36 IMPRESSION: SUCCESSFUL RIGHT THORACENTESIS USING ULTRASOUND GUIDANCE. Transfer Plan - Disposition Transfer Plan: [facility] - Time Spent with Patient Time spent with patient: Greater than 30 Minutes Qualifiers - * PATIENT BEING DISCHARGED WITH ANY OF THE FOLLOWING DIAGNOSIS: No Plan Time Spent: Greater than 30 Minutes
[2018-09-05] MEDS: NICOTINE 21 MG/24 HR PATCH.TD24 TD SCH (09:53)
[2018-09-05] MEDS: BISACODYL 5 MG TABEC PO SCH ×2 (09:53→17:06)
[2018-09-05] MEDS: DOCUSATE SODIUM 100 MG CAPSULE PO SCH (09:53)
[2018-09-05] MEDS: ENOXAPARIN SODIUM INJ 30 MG/0.3 ML DISP.SYRIN SUBCUT SCH (09:54)
[2018-09-05 15:20] VITALS: BP 110/61
== END 2018-09-05 18:21 | disposition hospice, inpatient (51) | DRG 180 ==
LOC: ER 10:21 → EH 14:41 → 4S 17:29
PROVIDERS: ADMIT Emergency Medicine; ATTEND Emergency Medicine
PROC: 0W993ZX Drainage of Right Pleural Cavity, Percutaneous Approach, Diagnostic (ICD-10-PCS; principal; 2018-08-29)
PROC: 3E02340 Introduction of Influenza Vaccine into Muscle, Percutaneous Approach (ICD-10-PCS; 2018-09-05)
DX: C34.90 Malignant neoplasm of unspecified part of unspecified bronchus or lung (principal); J18.9 Pneumonia, unspecified organism; E43 Unspecified severe protein-calorie malnutrition; J91.0 Malignant pleural effusion; E87.1 Hypo-osmolality and hyponatremia; R64 Cachexia; F10.280 Alcohol dependence with alcohol-induced anxiety disorder; C78.7 Secondary malignant neoplasm of liver and intrahepatic bile duct; E86.0 Dehydration; E87.6 Hypokalemia; F32.9 Major depressive disorder, single episode, unspecified; J44.9 Chronic obstructive pulmonary disease, unspecified; R33.9 Retention of urine, unspecified; R62.7 Adult failure to thrive; N39.490 Overflow incontinence; M19.90 Unspecified osteoarthritis, unspecified site; Z66 Do not resuscitate; F17.210 Nicotine dependence, cigarettes, uncomplicated; Z91.81 History of falling; Z68.21 Body mass index [BMI] 21.0-21.9, adult; Z88.2 Allergy status to sulfonamides; Z90.49 Acquired absence of other specified parts of digestive tract; Z90.710 Acquired absence of both cervix and uterus; Z23 Encounter for immunization
CPT/HCPCS: 32555; 36415; 70450; 71045; 71260; 74177; 80048; 80053; 80061; 80307; 81001; 82150; 82945; 83615; 83690; 83735; 84100; 84155; 84157; 84443; 84484; 85025; 85610; 87040; 87070; 87075; 87086; 87205; 88305; 88313; 88341; 88342; 89050; 90471; 90686; 93005; 93010; 96361; 96365; 96366; 96375; 96376; 99285; G0008; G8978-GP; G8979-GP; J1650; J1956; J2060; J2270; J3490; J7030

== ENCOUNTER 2018-09-12 13:19 | Emergency (ER) | payer MEDICARE ==
[2018-09-12] MEDS ORDERED: ALBUTEROL SULFATE 0.083% NEB 2.5 MG/3 ML AMPUL NEB ONE ×3 (13:48→16:38)
--- NOTE | 2018-09-12 13:50 | ER Document Report ---
ED Respiratory Problem <PRESLEY NERI - Last Filed: 09/12/18 22:07> - General Mode of Arrival: Medic Information source: Patient, Outside Facility Records TRAVEL OUTSIDE OF THE [place] IN LAST 30 DAYS: No - HPI Patient complains to provider of: COPD, Cough, Short of breath Onset: Last week Duration: Worse/persistent Quality of pain: Achy Pain Level: 3 Context: Hx COPD, Malignancy, Recent immobilization Cough: Nonproductive At home treatment: Bronchodilators Associated symptoms: Cough, Difficulty breathing, Wheezing. denies: Chest pain/ discomfort, Fever Similar symptoms previously: No Recently seen / treated by doctor: Yes <SRUTHI ENCARNACION - Last Filed: 09/13/18 14:19> - General Stated Complaint: WHEEZING Time Seen by Provider: 09/12/18 13:33 Notes: Patient presents complaining of shortness of breath with wheezing. Patient was sent here from a intermediate with report that she had pleural effusion and likely bilateral pneumonia. Patient was recently discharged from the hospital with a new diagnosis of metastatic liver cancer and was discharged to a intermediate. Patient has been wearing oxygen at 2 L nasal cannula. (SRUTHI ENCARNACION) - Related Data Allergies/Adverse Reactions: Sulfa (Sulfonamide Antibiotics) Allergy (Severe, Verified 08/28/18 10:24) Past Medical History - General Information source: Patient, Outside Facility Records - Social History Smoking Status: Former Smoker Frequency of alcohol use: Heavy - No recent alcohol use Drug Abuse: None Lives with: Spouse/Significant other Family History: Malignancy - Daughter breast cancer, mother lung cancer Pulmonary Medical History: Reports: Hx COPD Renal/ Medical History: Denies: Hx Peritoneal Dialysis Malignancy Medical History: Reports: Hx Liver Cancer Musculoskeletal Medical History: Reports Hx Arthritis Psychiatric Medical History: Reports: Hx Anxiety, Hx Depression Past Surgical History: Reports: Hx Appendectomy, Hx Cholecystectomy, Hx Hysterectomy, Hx Orthopedic Surgery - neck, Hx Tonsillectomy - Immunizations Hx Diphtheria, Pertussis, Tetanus Vaccination: Yes <SRUTHI ENCARNACION - Last Filed: 09/13/18 14:19> Review of Systems - Review of Systems Constitutional: Recent illness - Sent from intermediate for concern about pneumonia EENT: No symptoms reported Cardiovascular: No symptoms reported. denies: Chest pain Respiratory: Cough, Short of breath, Wheezing Gastrointestinal: No symptoms reported. denies: Abdominal pain, Vomiting Genitourinary: Retention - Chronic, has indwelling Chery Female Genitourinary: No symptoms reported Musculoskeletal: Back pain, Leg swelling Skin: No symptoms reported Hematologic/Lymphatic: No symptoms reported Neurological/Psychological: Anxiety, Weakness <SRUTHI ENCARNACION - Last Filed: 09/13/18 14:19> Physical Exam <PRESLEY NERI - Last Filed: 09/12/18 22:07> - General General appearance: Alert In distress: Mild - HEENT Head: Normocephalic, Atraumatic Eyes: Normal Conjunctiva: Normal Nasal: Normal Mouth/Lips: Normal Neck: Normal, Supple - Respiratory Respiratory status: Tachypnea. No: Labored Chest status: Nontender Breath sounds: Nonproductive cough, Rales - bilat lower lobes, Wheezing - Throughout Chest palpation: Normal - Cardiovascular Rhythm: Tachycardia Heart sounds: S1 appreciated, S2 appreciated - Abdominal Inspection: Other - Umbilical hernia Distension: Other - Edema to lower abdominal wall Bowel sounds: Normal Tenderness: Nontender Organomegaly: No organomegaly - Back Back: Normal, Tender - Generalized tenderness. No: CVA tenderness - Extremities General upper extremity: Edema - Bilateral elbows General lower extremity: Edema - Bilateral lower extremities - Neurological Neuro grossly intact: Yes Marcia Coma Scale Eye Opening: Spontaneous Neely Coma Scale Verbal: Oriented Neely Coma Scale Motor: Obeys Commands Marcia Coma Scale Total: 15 - Psychological Associated symptoms: Normal affect, Normal mood - Skin Skin Temperature: Warm Skin Moisture: Dry Skin Color: Pale <SRUTHI ENCARNACION - Last Filed: 09/13/18 14:19> - Vital signs Vitals: Temp Resp Pulse Ox 98.0 F 21 H 92 09/12/18 13:29 09/12/18 13:29 09/12/18 13:29 - General Notes: cachectic with anasarca (ALYSHA,KELTSIE) - Genitourinary Notes: Patient with indwelling Chery with dark yellow urine to bag (ALEX ENCARNACIONNIRMALA) Course - Laboratory Result Diagrams: 09/12/18 13:32 09/12/18 13:32 <PRESLEY NERI - Last Filed: 09/12/18 22:07> - Laboratory Result Diagrams: 09/12/18 13:32 09/12/18 13:32 - Diagnostic Test Radiology reviewed: Image reviewed, Reports reviewed <SRUTHI ENCARNACION - Last Filed: 09/13/18 14:19> - Re-evaluation Re-evalutation: 09/12/18 22:07 This is Kirill Neri physician mechanic assistant at 7 PM this evening I took over patient care of this [place] and was informed of her fragile state. After doing examination of patient she was stable and I was informed we are waiting for transport for her to arrive between 839. Just to keep an eye on her to make sure that her blood pressure maintained and she was doing well. Throughout her time she is been stable she has had blood pressure of 122/62 her heart rates been running about 118. Which is the best she has had all day from my understanding. Currently it is 2208 and transfer is arrived I have reexamined patient once again and she is medically clear for transport to [facility] for further medical care. (PRESLEY NERI) 09/12/18 15:[address] Healy regarding patient presentation and diagnostic evaluation. Agrees with plan to treat for possible pneumonia with cefepime and Levaquin at this time. Recommends consulting with radiologist regarding patient 's chest x-ray report. Dr. Healy recommends maintenance IV fluids at 75 mL's an hour as well as diuresing patient with Lasix at this time. Spoke with radiologist who recommends obtaining a CT of the chest to definitively rule out pneumothorax versus infiltrate, and to further evaluate abnormal findings on chest film. Patient states that she did not want to have any treatment for her cancer as it was so advanced although patient states that she would like CPR and intubation and other life saving measures were she to need them. 09/12/18 16:[address] Healy who recommends consultation with pulmonology if we have them consolidator and if not to consult with surgery. No surveyor instrument assistant consolidator today. Did consult with Dr. Gallego who feels that patient needs a bronchoscopy by a surveyor instrument assistant or possible pleurocentesis by radiology, does not feel that patient needs surgical consultation at this time. O2 increased to 4 L nasal cannula. 09/12/2018 16:40 Patient significant other at bedside. In discussing patient's presentation and plan of care, patient became emotional. Shortly thereafter patient did have a short run of V. tach. Patient returned to sinus tach at a rate of 123. Pads applied to patient's chest, crash cart outside of room. 09/12/18 17:[address] Owens at [facility] who does agree to accept patient for expedited transfer. [facility] will send an ambulance for transfer. 09/12/18 18:15 Patient with blood pressure 99/59. Heart rate continues 120. RN to obtain second IV, will continue to monitor. 09/12/18 18:15 Please bill 30 minutes critical care time spent in direct contact evaluating, reevaluating patient, treating symptoms, reviewing labs, studies and speaking with family and consultants, excluding any procedures. 09/12/18 19:03 Report and handoff given to Kirill CABA (SRUTHI ENCARNACION) - Vital Signs Vital signs: Temp Pulse Resp BP Pulse Ox 98.0 F 24 H 122/62 90 L 09/12/18 13:29 09/12/18 21:53 09/12/18 21:45 09/12/18 21:53 - Laboratory Laboratory results interpreted by me: 09/12/18 09/12/18 09/12/18 13:32 13:32 13:32 WBC 11.0 H RBC 3.31 L Hgb 11.5 L Hct 33.0 L MCV 100 H MCH 34.6 H RDW 14.6 H Seg Neutrophils % 85.8 H Lymphocytes % 7.2 L Absolute Neutrophils 9.4 H Sodium 123.9 L Chloride 92 L Creatinine 0.32 L Total Bilirubin 1.5 H Direct Bilirubin 1.0 H AST 117 H Alkaline Phosphatase 394 H NT-Pro-B Natriuret Pep 938 H Total Protein 5.1 L Albumin 2.7 L Urine Protein Urine Ketones Urine Blood Urine Nitrite Urine Bilirubin Urine Urobilinogen Ur Leukocyte Esterase 09/12/18 14:02 WBC RBC Hgb Hct MCV MCH RDW Seg Neutrophils % Lymphocytes % Absolute Neutrophils Sodium Chloride Creatinine Total Bilirubin Direct Bilirubin AST Alkaline Phosphatase NT-Pro-B Natriuret Pep Total Protein Albumin Urine Protein 30 H Urine Ketones 20 H Urine Blood SMALL H Urine Nitrite POSITIVE H Urine Bilirubin SMALL H Urine Urobilinogen 4.0 H Ur Leukocyte Esterase SMALL H Discharge <PRESLEY NERI - Last Filed: 09/12/18 22:07> <SRUTHI ENCARNACION - Last Filed: 10/19/18 14:19> - Discharge Clinical Impression: Hyponatremia, Liver masses, Mediastinal mass, Collapse of right lung, Anasarca Pneumonia Qualifiers: Pneumonia type: due to unspecified organism Laterality: bilateral Lung location : unspecified part of lung Qualified Code(s): J18.9 - Pneumonia, unspecified organism Condition: Serious Disposition: [facility]
[2018-09-12 14:08] LABS: VENOUS BLOOD BASE EXCESS -0.9 mmol/L; VENOUS BLOOD HCO3 23.4 mmol/L (20-32); VENOUS BLOOD PCO2 37.7 mmHg (35-63); VENOUS BLOOD PH 7.41 (7.30-7.42)
[2018-09-12 14:13] LABS: ABSOLUTE LYMPHOCYTES (AUTO) 0.8 10^3/uL (0.5-4.7); ABSOLUTE MONOCYTES (AUTO) 0.7 10^3/uL (0.1-1.4); ABSOLUTE NEUT (AUTO) 9.4 10^3/uL (1.7-8.2); BASOPHILS % (AUTO) 0.4 % (0-2); EOSINOPHILS % (AUTO) 0.1 % (0-6); HEMOGLOBIN 11.5 g/dL (12.0-15.5); LYMPHOCYTES % (AUTO) 7.2 % (13-45); MEAN CORPUSCULAR HEMOGLOBIN 34.6 pg (27.0-33.4); MEAN CORPUSCULAR HGB CONC 34.8 g/dL (32.0-36.0); MEAN CORPUSCULAR VOLUME 100 fl (80-97); MONOCYTES % (AUTO) 6.5 % (3-13); PLATELET COUNT 270 10^3/uL (150-450); RED BLOOD COUNT 3.31 10^6/uL (3.72-5.28); RED CELL DISTRIBUTION WIDTH 14.6 % (11.5-14.0); SEGMENTED NEUTROPHILS % (AUTO) 85.8 % (42-78); TOTAL CELLS COUNTED % (AUTO) 100 %
[2018-09-12 14:21] LABS: ALANINE AMINOTRANSFERASE 52 U/L (9-52); ALBUMIN 2.7 g/dL (3.5-5.0); ALKALINE PHOSPHATASE 394 U/L (38-126); ANION GAP 7 (5-19); ASPARTATE AMINO TRANSFERASE 117 U/L (14-36); BILIRUBIN,TOTAL 1.5 mg/dL (0.2-1.3); BLOOD UREA NITROGEN 8 mg/dL (7-20); CALCIUM 8.6 mg/dL (8.4-10.2); CARBON DIOXIDE 25 mmol/L (22-30); CHLORIDE 92 mmol/L (98-107); GLUCOSE 95 mg/dL (75-110); POTASSIUM 4.2 mmol/L (3.6-5.0); SODIUM 123.9 mmol/L (137-145); TOTAL PROTEIN 5.1 g/dL (6.3-8.2)
[2018-09-12 14:27] LABS: APPEARANCE,URINE CLOUDY; BILIRUBIN,URINE SMALL (NEGATIVE); COLOR,URINE YELLOW; GLUCOSE, URINE NEGATIVE (NEGATIVE); KETONES,URINE 20 mg/dL (NEGATIVE); LEUKOCYTE ESTERASE,URINE SMALL (NEGATIVE); NITRITE,URINE POSITIVE (NEGATIVE); PROTEIN,URINE 30 mg/dL (NEGATIVE)
[2018-09-12 14:33] LABS: NT PRO BNP 938 pg/mL (5-900)
[2018-09-12 14:35] LABS: TROPONIN I < 0.012 ng/mL
[2018-09-12] MEDS ORDERED: CEFEPIME 2 GM/D5W RTU 2 GM/50 ML RTUPB IV ONE (14:38)
[2018-09-12] MEDS ORDERED: LEVOFLOXACIN 750 MG/D5W RTU 750 MG/150 ML RTUPB IV ONE (14:40)
[2018-09-12] MEDS ORDERED: NORMAL SALINE 1000 ML 1,000 ML IV ONE (14:41)
[2018-09-12] MEDS ORDERED: MORPHINE SULFATE 10 MG/ML INJ IV ONE ×2 (14:46→16:27)
--- NOTE | 2018-09-12 14:55 | RADIOLOGY REPORT (SQ) ---
EXAM DESCRIPTION: CHEST 2 VIEWS COMPLETED DATE/TIME: 09/12/2018 2:31 pm REASON FOR STUDY: wheezing, sob COMPARISON: None recent. Correlation: Chest CT 08/29/2018. NUMBER OF VIEWS: Two view TECHNIQUE: Frontal and lateral radiographic images of the chest acquired. LIMITATIONS: None. FINDINGS: LUNGS AND PLEURA: Moderate right and small left pleural effusion. Consolidation right ape x likely collapse of the right upper lobe. MEDIASTINUM AND HILAR STRUCTURES: Known posterior mediastinal mass not well visualized. HEART AND VASCULAR STRUCTURES: Stable appearance. BONES: No acute findings. HARDWARE: None in the chest. OTHER: No other significant finding. IMPRESSION: Bilateral pleural effusions. Collapse of the right upper lobe. TECHNICAL DOCUMENTATION: JOB ID: [id number] [employer]- All Rights Reserved Reading location - IP/workstation name: [email or web address]
[2018-09-12] MEDS ORDERED: NORMAL SALINE 1000 ML 1,000 ML IV PRN (14:56)
[2018-09-12] MEDS ORDERED: FUROSEMIDE INJ/PF 40 MG/4 ML SDV IV ONE (14:57)
--- NOTE | 2018-09-12 15:54 | RADIOLOGY REPORT (SQ) ---
EXAM DESCRIPTION: CT CHEST WITHOUT COMPLETED DATE/TIME: 09/12/2018 3:39 pm REASON FOR STUDY: ?infiltrate/HF/pneumothorax COMPARISON: 08/29/2018 TECHNIQUE: CT scan performed of the chest without intravenous contrast. Images reviewed with lung, soft tissue and bone windows. Reconstructed coronal and sagittal MPR images reviewed. All images st ored on PACS. All CT scanners at this facility use dose modulation, iterative reconstruction, and/or weight based d osing when appropriate to reduce radiation dose to as low as reasonably achievable (ALARA). [facility]: Dose Right [facility]: CareDose [facility]: Dose Right [facility]: Teradose 4D [facility]: [employer] RADIATION DOSE: CT Rad equipment meets quality standard of care and radiation dose reduction techniq ues were employed. CTDIvol: 6.1 mGy. DLP: 253 mGy-cm. mGy. LIMITATIONS: No technical limitations. FINDINGS: LUNGS AND PLEURA: Interval increase in pleural effusions bilaterally, right greater than l eft. Volume on the right estimated 2 L. Interval collapse of the right upper lobe. Bronchial cut of f sign. Increasing airspace disease in the left upper and lower lobes. HILAR AND MEDIASTINAL STRUCTURES: Posterior mediastinal mass not significantly changed. HEART AND VASCULAR STRUCTURES: No aneurysm. No pericardial effusion. UPPER ABDOMEN: Liver metastasis grossly unchanged. THYROID AND OTHER SOFT TISSUES: Body wall edema. BONES: No acute findings. HARDWARE: None in the chest. OTHER: No other significant findings. IMPRESSION: 1. Increasing pleural effusions with interval collapse of the right upper lobe. Endobronchial lesion versus mucous plugging. Increasing left lower and upper lobe airspace disease may represent superim posed pneumonia. TECHNICAL DOCUMENTATION: JOB ID: [id number] Quality ID # [id number]: Final reports with documentation of one or more dose reduction techniques (e.g., Au tomated exposure control, adjustment of the mA and/or kV according to patient size, use of iterative reconstruction technique) 2010 [employer]- All Rights Reserved Reading location - IP/workstation name: [email or web address]-[email or web address]
[2018-09-12] MEDS ORDERED: IPRATROPIUM/ALBUTEROL 0.5-2.5 MG/3 ML AMPUL NEB ONE ×2 (16:41→16:45)
--- NOTE | 2018-09-12 18:25 | EKG REPORT ---
SEVERITY:- BORDERLINE ECG - SINUS TACHYCARDIA LOW VOLTAGE IN FRONTAL LEADS BORDERLINE T ABNORMALITIES, DIFFUSE LEADS : Confirmed by: Noah Montiel MD 12-Sep-2018 18:24:41
[2018-09-12 21:54] VITALS: BP 122/62
== END 2018-09-12 21:00 | disposition short-term general hospital (02) ==
LOC: ER 13:19
DX: E87.1 Hypo-osmolality and hyponatremia (principal); J98.19 Other pulmonary collapse; R60.1 Generalized edema; J18.9 Pneumonia, unspecified organism; R16.0 Hepatomegaly, not elsewhere classified; R06.2 Wheezing
CPT/HCPCS: 93005; 96376; 94640 ×2; 99291; 96361; 96375; 96365; 96366; 96367; 36415; 87040; 87086; 83605; 83735; 85025; 87088; 80053; 81001; 84484; 82803; 83880; 71046; 71250; 93010; J1940; J2270; J7030; J1956; A9270 ×2; J0692; J7620